=== PATIENT | female | born 1955 | race Caucasian/White ===

== ENCOUNTER 2016-06-20 14:39 | Outpatient (CLI) ==
[2015-10-28 13:20] VITALS: BMI 38.6
[2016-06-20 15:17] VITALS: BP 132/74; TEMP 98.1
[2016-06-20 15:41] LABS: BILIRUBIN,URINE Negative (NEGATIVE); KETONES,URINE Negative (NEGATIVE); LEUKOCYTE ESTERASE ,URINE 1+ (NEGATIVE); NITRITE,URINE Negative (NEGATIVE); PH,URINE 5.5 (5-9); PROTEIN,URINE Negative (NEGATIVE); URINE, BLOOD Negative (NEGATIVE)
[2016-06-20 15:48] LABS: ADD URINE MICROSCOPIC YES
[2016-06-20 15:49] LABS: BACTERIA,URINE 3+ (NOT PRESENT)
== END 2016-06-20 14:40 | disposition home or self-care (01) ==
LOC: OUTPT 14:39
PROVIDERS: ATTEND Internal Medicine Infectious Disease
DX: Z87.440 Personal history of urinary (tract) infections (principal); Z68.36 Body mass index [BMI] 36.0-36.9, adult; R82.90 Unspecified abnormal findings in urine
CPT/HCPCS: 81001; 87086; 87186; 99211

== ENCOUNTER 2016-07-12 11:11 | Outpatient (RCR) ==
[2015-10-28 13:20] VITALS: BMI 38.6
--- NOTE | 2016-07-28 11:12 | RS.CSNOTE ---
PT Case Note Date of Note: 07/12/16 Title of document: ICD 10 codes Note: M62.81 Generalized Weakness. 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 R26.2 Difficulty Walking
== END 2016-07-18 ==
PROVIDERS: ATTEND Emergency Medicine
DX: Z74.09 Other reduced mobility (principal)

== ENCOUNTER 2016-07-21 15:17 | Outpatient (CLI) | payer OTHER ==
[2015-10-28 13:20] VITALS: BMI 38.6
[2016-07-21 16:00] LABS: BILIRUBIN,URINE Negative (NEGATIVE); KETONES,URINE Negative (NEGATIVE); LEUKOCYTE ESTERASE ,URINE 2+ (NEGATIVE); NITRITE,URINE Positive (NEGATIVE); PROTEIN,URINE Negative (NEGATIVE); URINE, BLOOD Trace-intact (NEGATIVE)
[2016-07-21 16:11] LABS: ADD URINE MICROSCOPIC YES
[2016-07-21 16:12] LABS: BACTERIA,URINE 3+ (NOT PRESENT)
== END 2016-07-21 15:18 | disposition home or self-care (01) ==
LOC: LAB 15:17
PROVIDERS: ATTEND Internal Medicine Infectious Disease
DX: N30.90 Cystitis, unspecified without hematuria (principal); B96.89 Other specified bacterial agents as the cause of diseases classified elsewhere; T78.40XA Allergy, unspecified, initial encounter; Z68.36 Body mass index [BMI] 36.0-36.9, adult
CPT/HCPCS: 81001; 87086; 87186

== ENCOUNTER 2016-08-25 15:10 | Outpatient (CLI) ==
[2015-10-28 13:20] VITALS: BMI 38.6
[2016-08-25 16:19] VITALS: BP 104/68; TEMP 97
[2016-08-25 16:19] LABS: BILIRUBIN,URINE Negative (NEGATIVE); KETONES,URINE Negative (NEGATIVE); LEUKOCYTE ESTERASE ,URINE 1+ (NEGATIVE); NITRITE,URINE Positive (NEGATIVE); PH,URINE 5.5 (5-9); PROTEIN,URINE Negative (NEGATIVE); URINE, BLOOD Trace-lysed (NEGATIVE)
[2016-08-25 16:21] LABS: ADD URINE MICROSCOPIC YES
[2016-08-25 16:22] LABS: BACTERIA,URINE 2+ (NOT PRESENT)
== END 2016-08-25 15:11 | disposition home or self-care (01) ==
LOC: OPMED 15:10
PROVIDERS: ATTEND Internal Medicine Infectious Disease
DX: N39.0 Urinary tract infection, site not specified (principal); B96.29 Other Escherichia coli [E. coli] as the cause of diseases classified elsewhere
CPT/HCPCS: 81001; 87086; 87186

== ENCOUNTER 2016-11-06 15:48 | Outpatient (CLI) | payer OTHER ==
[2015-10-28 13:20] VITALS: BMI 38.6
[2016-11-06 16:48] VITALS: BP 112/70; TEMP 98.3
[2016-11-06 17:25] LABS: BILIRUBIN,URINE Negative (NEGATIVE); KETONES,URINE Negative (NEGATIVE); LEUKOCYTE ESTERASE ,URINE 3+ (NEGATIVE); NITRITE,URINE Positive (NEGATIVE); PH,URINE 5.5 (5-9); PROTEIN,URINE Negative (NEGATIVE); URINE, BLOOD 1+ (NEGATIVE)
[2016-11-06 17:27] LABS: ADD URINE MICROSCOPIC YES
[2016-11-06 17:28] LABS: BACTERIA,URINE 3+ (NOT PRESENT)
== END 2016-11-06 15:49 | disposition home or self-care (01) ==
LOC: OPMED 15:48
PROVIDERS: ATTEND Internal Medicine Infectious Disease
DX: N39.0 Urinary tract infection, site not specified (principal); B96.29 Other Escherichia coli [E. coli] as the cause of diseases classified elsewhere; E11.9 Type 2 diabetes mellitus without complications; Z68.35 Body mass index [BMI] 35.0-35.9, adult
CPT/HCPCS: 81001; 87086; 87186; 99211

== ENCOUNTER 2016-11-16 15:57 | Outpatient (CLI) ==
[2015-10-28 13:20] VITALS: BMI 38.6
[2016-11-16 16:55] LABS: BASOPHILS % (AUTO) 0.5 % (0.0-3.0); EOSINOPHILS # (AUTO) 0.2 K/ul (0.0-0.7); EOSINOPHILS % (AUTO) 2.4 % (0.0-7.0); HEMATOCRIT 40.6 % (37.0-47.0); HEMOGLOBIN 13.5 g/dl (12.0-16.0); IMMATURE GRANULOCYTE % (AUTO) 0.4 % (0.0-5.0); LYMPHOCYTES # (AUTO) 1.9 K/uL (0.60-3.4); LYMPHOCYTES % (AUTO) 23.1 (10.0-50.0); MEAN CORPUSCULAR HEMOGLOBIN 29.2 pg (27.0-31.0); MEAN CORPUSCULAR HGB CONC 33.3 (31.8-35.4); MEAN CORPUSCULAR VOLUME 87.7 fl (81.0-99.0); MONOCYTES # (AUTO) 0.6 K/uL (0.4-2.0); MONOCYTES % (AUTO) 6.9 (0-10); NEUTROPHILS # (AUTO) 5.6 K/ul (2.0-6.9); NEUTROPHILS % (AUTO) 66.7; PLATELET COUNT 317 10^3/uL (140-440); RED BLOOD COUNT 4.63 10^6/ul (4.20-5.40); WHITE BLOOD COUNT 8.39 K/ul (4.6-10.2)
[2016-11-16 17:35] LABS: ALBUMIN 4.4 g/dL (3.4-5.0); ALBUMIN/GLOBULIN RATIO 1.47; ANION GAP 17.2; BILIRUBIN,TOTAL 0.53 mg/dL (0.00-1.20); BUN/CREATININE RATIO 15.9; CALCIUM 9.9 mg/dL (8.2-10.2); CHOL/HDL RATIO 3.3 (4.5-5.5); CREATININE 1.32 mg/dL (0.60-1.30); POTASSIUM 4.2 mmol/L (3.5-5.10); TOTAL PROTEIN 7.4 g/dL (5.8-8.1)
== END 2016-11-16 15:58 | disposition home or self-care (01) ==
LOC: LAB 15:57
PROVIDERS: ATTEND Emergency Medicine
CPT/HCPCS: 36415; 80053; 80061; 83036; 84443; 85025

== ENCOUNTER 2016-11-30 10:55 | Outpatient (CLI) ==
[2016-11-30 11:14] VITALS: BMI 35.2
== END 2016-11-30 10:56 | disposition home or self-care (01) ==
LOC: AMBL 10:55
PROVIDERS: ATTEND Emergency Medicine
DX: S00.31XA Abrasion of nose, initial encounter (principal); W01.0XXA Fall on same level from slipping, tripping and stumbling without subsequent striking against object, initial encounter; Z86.73 Personal history of transient ischemic attack (TIA), and cerebral infarction without residual deficits

== ENCOUNTER 2016-11-30 11:05 | Emergency (ER) ==
[2016-11-30 11:14] VITALS: BP 113/63; TEMP 98.8; BMI 35.2
--- NOTE | 2016-11-30 11:28 | ED.PDOC ---
General ED Provider: Dr. STEPHANIE HINTON Chief Complaint: Fall Stated Complaint: Fall; no loss of consciousness. R wrist tookl fall as did face Time Seen by Physician: 11:15 Mode of Arrival: Ambulance Information Source: Patient [facility] Nursing and Triage Documentation Reviewed and Agree: Yes Review of Systems - Review Of Systems Constitutional: Reports: No symptoms Musculoskeletal: Reports: Joint swelling (R wrist) Neurological: Reports: No symptoms All Other Systems: Reviewed and Negative Past Medical History - Past Medical History Previously Healthy: No Endocrine: Reports: DM 2 Cardiovascular: Reports: Hypertension, CHF Respiratory: Reports: Pneumonia Hematological: Reports: None Gastrointestinal: Reports: None Genitourinary: Reports: None Neuro/Psych: Reports: CVA Musculoskeletal: Reports: Other Cancer: Reports: None Last Menstrual Period: unknown Other Pertinent Past Medical History: Drop Foot, Broken Back - Surgical History General Surgical History: Reports: Appendectomy, Cholecystectomy, Tonsillectomy , Unknown (Gallbladder, Tonsilectomy, Appendectomy Drop Foot, Broken Back) - Family History Family History: Reports: Unknown - Social History Smoking Status: Never smoker Hx Substance Use: No Alcohol Screening: None - Immunizations Tetanus Shot up to Date: Yes (5 yrs) Physical Exam - Physical Exam Appearance: Well-appearing Eyes: ELVIS, EOMI, Conjunctiva clear, Right pupil size (4mm), Left pupil size (4 mm) ENT: Ears normal, Nose normal, Oropharynx normal Neck: Supple Respiratory: Airway patent, Breath sounds clear, Respirations nonlabored Cardiovascular: RRR, Pulses normal GI/: Soft, Nontender, No masses, Bowel sounds normal Skin: Warm, Dry, Normal color (Developing ecchymosis L infra patellar) Neurological: Motor intact (Motor R limited with residual CVA contractures and limited motion), Alert, Oriented Interpretation - Radiology Interpretation Radiology Interpretation By: Radiologist Radiology Results: Negative (R wrist) Critical Care Note - Critical Care Note Total Time (mins): 30 Course - Course Orders, Labs, Meds: Orders Category Date Time Status Wound [ED WOUND CARE] .ONCE EMERGENCY 11/30/16 13:[address] HEAD W/O CONTRAST Stat RADS 11/30/16 13:02 Completed WRIST, RIGHT 3 VIEWS Stat RADS 11/30/16 11:26 Completed Vital Signs: Temp Pulse Resp BP Pulse Ox 11/30/16 11:06 98.8 F 79 20 113/63 96 Departure - Departure Time of Disposition: 14:03 Disposition: HOME SELF-CARE Discharge Problem: Abrasion Wrist contusion Qualifiers: Encounter type: initial encounter Laterality: right Qualifier Code: (S60.211A) Contusion of right wrist, initial encounter Instructions: Contusion in Adults (ED) Condition: Good Pt referred to PMD for follow-up: Yes (Call for appointment) Additional Instructions: Resume usual medications; follow up with primary care as needed. Allergies/Adverse Reactions: Allergies atorvastatin calcium [From Lipitor] Adverse Reaction (Verified 10/28/15 13:21) bacitracin [From Neosporin ([id number])] Adverse Reaction (Verified 10/28/15 13:21) bacitracin zinc [From Neosporin ([id number])] Adverse Reaction (Verified 02/03 13:21) cephalexin monohydrate [From Keflex] Adverse Reaction (Verified 10/28/15 13:21) Iodinated Contrast- Oral and IV Dye Adverse Reaction (Verified 10/28/15 13:21) neomycin sulfate [From Neosporin ([id number])] Adverse Reaction (Verified 02/03 13:21) polymyxin B [From Neosporin (dor-pqq-ylqum)] Adverse Reaction (Verified 13:21) Sulfa (Sulfonamide Antibiotics) Adverse Reaction (Verified 10/28/15 13:21) Home Medications: Ambulatory Orders Amlodipine Besylate [Norvasc] 5 mg PO DAILY 12/12/12 Furosemide [Lasix Tab] 20 mg PO QDAC 12/12/12 Ranitidine HCl [Zantac] 150 mg PO BIDAC 12/12/12 Lisinopril 2.5 mg PO DAILY 05/27/13 Fenofibrate Nanocrystallized [Tricor] 48 mg PO BEDTIME 09/04/13 Metformin HCl [Glucophage] 500 mg PO BID 09/04/13 Nitrofurantoin Macrocrystal [Macrodantin] 50 mg PO BEDTIME 09/04/13 Oxybutynin Chloride [Ditropan Xl] 15 mg PO DAILY 09/04/13 Clopidogrel Bisulfate [Plavix] 75 mg PO DAILY 02/16/14 Icosapent Ethyl [Vascepa] 1 gm PO DAILY 08/20/14 Rosuvastatin Calcium [Crestor] 20 mg PO BEDTIME 08/20/14 Sertraline HCl [Zoloft] 25 mg PO BEDTIME 08/20/14 Icosapent Ethyl [Vascepa] 1 g PO DAILY 04/08/15 Spironolactone 25 mg PO BID 04/08/15 Diclofenac Epolamine [Flector] 1 each TD BID 11/16/16 Magnesium Oxide [Magnesium] 250 mg PO DAILY 11/16/16 Metformin HCl 500 mg PO DAILY 11/16/16 Nystatin [Nystop] 60 gm TP DAILY powder 11/16/16 Pantoprazole Sodium [Protonix] 40 mg PO DAILY 11/16/16 Disposition Discussed With: Patient (and family)
--- NOTE | 2016-11-30 11:57 | DI ---
EXAM: Radiographs, right wrist HISTORY: Initial presentation right wrist injury. COMPARISON: None available. TECHNIQUE: Three views. FINDINGS: The bones are demineralized. The wrist joint and MCP joints are flexed which cause super imposition of structures, limiting evaluation for fracture. No acute fracture or dislocation sugges annette. Moderate osteoarthritic changes likely present throughout the wrist. IMPRESSION: No fracture or dislocation within the limitations discussed above. Consider follow-up examination i f there are persistent some.
--- NOTE | 2016-11-30 13:44 | CT ---
EXAM: CT BRAIN HISTORY: Fall, on Plavix TECHNIQUE: CT brain without intravenous contrast. 5-mm axial sections with Reformations. COMPARISON: 10/28/2015 FINDINGS: There is generalized atrophy. At least mild chronic microvascular ischemic change is suggested. La rge degree of encephalomalacia within the left supratentorial brain likely related to old infarction or trauma. These findings are stable. Brain otherwise is unremarkable without distinct evidence o f hemorrhage or large vessel distribution recent ischemic infarction. There is no suggestion of acu te hydrocephalus or subdural fluid collection. No mass or mass effect. Cranium is within normal limits. Mastoid air cells are aerated. The visualized paranasal sinuses are clear. IMPRESSION: No acute intracranial process.
== END 2016-11-30 14:24 | disposition home or self-care (01) ==
LOC: ED 11:05
DX: S60.211A Contusion of right wrist, initial encounter (principal); S09.93XA Unspecified injury of face, initial encounter; T14.8 Other injury of unspecified body region; W19.XXXA Unspecified fall, initial encounter
CPT/HCPCS: 99283

== ENCOUNTER 2017-01-10 12:52 | Outpatient (CLI) | payer OTHER ==
--- NOTE | 2017-01-12 11:01 | MAMMO ---
EXAM: Bilateral digital screening mammogram History: Screening Comparison: Bilateral mammogram 09/21/2015 Findings: MLO and CC views of bilateral breasts demonstrate scattered fibroglandular breast parenchy ma. Stable benign bilateral breast calcifications. There are no dominant masses, no suspicious leif rocalcifications and no architectural distortions Impression: Benign stable mammogram. Recommend followup routine screening mammography in 1 year. BIRADS 2
== END 2017-01-10 12:53 | disposition home or self-care (01) ==
LOC: RAD 12:52
PROVIDERS: ATTEND Internal Medicine
DX: Z12.31 Encounter for screening mammogram for malignant neoplasm of breast (principal)
CPT/HCPCS: 77067

== ENCOUNTER 2017-01-18 15:32 | Outpatient (CLI) ==
[2017-01-18 15:47] LABS: BILIRUBIN,URINE Negative (NEGATIVE); KETONES,URINE Negative (NEGATIVE); LEUKOCYTE ESTERASE ,URINE 1+ (NEGATIVE); NITRITE,URINE Positive (NEGATIVE); PH,URINE 5.5 (5-9); PROTEIN,URINE Negative (NEGATIVE); URINE, BLOOD Trace-intact (NEGATIVE)
[2017-01-18 15:50] LABS: ADD URINE MICROSCOPIC YES
[2017-01-18 15:51] LABS: BACTERIA,URINE 3+ (NOT PRESENT)
== END 2017-01-18 15:33 | disposition home or self-care (01) ==
LOC: LAB 15:32
PROVIDERS: ATTEND Internal Medicine
DX: N39.0 Urinary tract infection, site not specified (principal)
CPT/HCPCS: 81001; 87086

== ENCOUNTER 2017-02-15 13:30 | Outpatient (RCR) ==
--- NOTE | 2017-02-06 11:00 | RS.OPPTEV2 ---
Date of Note: 01/31/17 Visit #: 1 Date of Evaluation: 01/31/17 Payer Source: MEDICARE Treatment Diagnosis: left knee pain History of Condition/Mechanism of Injury:: Patient states she fell a few months ago when she was walking out to the bus. States she fell in the front yard. The left knee has hurt since the fall. Prior Level of Function.....Patient was independent with: Ambulation/Mobility ( transfers) Level of Function: Patient has help from family members for ADL's and selfcare. Functional Limitations: Self Care, ADL's, Standing, Bending, Squatting, Ambulation, Community Access/Integration Current Subjective/complaints:: Patient reports left knee pain. States she has needed more assistance due to knee pain from the fall. She was given a knee brace from the doctor's office. States she and her son were not shown how to derrick the brace. Reports tenderness around the medial side of the knee joint. Treatment Side (optional): Left Medical History Medical History: Hypertension, CVA/TIA, Diabetes, Arthritis Medical History Comments:: Includes: pneumonia, DMII, NV, HTN, COPD, GERD, CVA (2003), appendectomy, cholecstectomy Smoking Status: Never smoker Hx Home Medications: medications not brought in Patient's Goals: Her goal is to get relief of left knee pain. Pain Assessment - Pain Description Pain Location: left knee Current Pain Intensity: 3/10 Worst Pain Intensity: 6/10 Functional Outcome Measure LE Functional Scale: 11 (=86.25% impairment) - G Codes & Severity Modifier G Codes & Modifier: Mobility current CM. Mobility goal CL Source of G Code score: LE functional scale Observation - Observation Inspection: Patient presents to therapy via her manual wheelchair. She has a quad cane that she uses for transfers. She has an AFO on the right LE from history of CVA. Performs sit to stand tranfers with supvn. Amb. short distances with her quad cane with supvn. Gait - Gait Pattern Gait Comments: Patient ambulates with quad cane in left hand. She has right sided maggi-paresis from CVA many years ago. She ambulates with supervision short distances in the department. - Left Knee ROM Left Knee Extension: -3 degrees from full extension Left Knee Flexion: 92 (degrees AROM) Comments: measurements taken in sitting - Left Knee Strength Left Knee Extension: 4 Good Left Knee Flexion: 4+ Good + - Special Tests Patellar Compression Test: Negative Left Palpation Comments:: Patient reports tenderness with palpation to the medial joint line and over the medial tibial condyle. Slight tenderness reported with palpation to the patellar tendon, no tenderness over the quad tendon. Sensation - Sensation Right Lower Extremity: Intact/Normal Left Lower Extremity: Intact/Normal Balance - Standing Balance Static Standing Balance: Fair Dynamic Standing Balance: Fair (+) - Treatment Modality: Ultrasound Parameters/Method Applied: 1.5 w/cm2 continuous X 8 mins to left knee, medial joint line and patella tendon. Patient Position: Supine Interventions - Exercise/Activities/Manual Therapy Exercises/Activities: No exercises for HEP given today. Instructed patient how to derrick brace. Recommend her son come to watch how to derrick brace properly. Manual Therapy: na HOME EXERCISE PROGRAM: none given at eval - Charges Total Direct Minutes: 45 mins Total Treatment Time: 45 mins Procedures billed for this date of service:: [facility] , Assessment Assessment: Patient presents to therapy with a diagnosis of left knee pain, joint stiffness, osteoarthritis, and s/p fall a few months ago. She reports medial joint line pain and decreased AROM with left knee flexion and extension. Left knee also demonstrates potential to gain more strength and joint stability. She and her son will benefit from instruction for proper knee brace donning. Patient Education: Education of diagnosis, Body/Joint mechanics, Activity Modification, Education of Plan of Care Rehab Potential: Good Short Term Goals Goal #1: Left knee pain decreased to minimal. Goal to be met by: 02/19/17 Goal #2: Left knee active flexion to 105 degrees. Goal to be met by: 02/19/17 Goal #3: Left quad strength improved to 4+/5. Goal to be met by: 02/19/17 Goal #4: Pt and son demonstrate independence with donning left knee brace. Goal to be met by: 02/12/17 County Director Goals Goal #1: Pt knows HEP and to continue ex's to maintain functional level at D/C. Goal to be met by: 03/12/17 Goal #2: Score on LE functional scale improved to less than 79% impairment. Goal to be met by: 03/12/17 Goal #3: Pt to amb. and perform ADL's with minimal to no knee pain. Goal to be met by: 03/12/17 Progress towards goal: Progressing Plan - Treatment to be Provided Procedures: Therapeutic Exercises, Therapeutic Activity, Gait Training, Manual Therapy, Patient Education Modalities: Electrical Stimulation, Ultrasound/Phonophoresis, Cryotherapy, Hot Packs - Treatment Plan Frequency: 2 X week Duration: 4 weeks ORDER # VISITS AND/OR THROUGH DATE: 03/12/17 - Treatment Code (1) Knee pain Code(s): M25.569 - PAIN IN UNSPECIFIED KNEE Qualifiers: Chronicity: acute Laterality: left Qualified Code(s): M25.562 - Pain in left knee (2) Knee stiffness Qualifiers: Laterality: left Qualified Code(s): M25.662 - Stiffness of left knee, not elsewhere classified
--- NOTE | 2017-02-06 15:06 | RS.OPPTDN ---
Subjective Date of Note: 02/06/17 Visit #: 2 Date of Evaluation: 01/31/17 Payer Source: MEDICARE Treatment Diagnosis: left knee pain Current Subjective/complaints:: Patient reports left knee pain is better following exericse. States she will try to wear the knee brace a few hours a day. States she understands HEP and will work on it as instructed. Pain Assessment - Pain Description Pain Location: left knee Pain Description: more stiffness Current Pain Intensity: 3/10 - Treatment Modality: Ultrasound Parameters/Method Applied: [id number] at 1.5w/cm2 to the left knee joint with focus at the medial joint line. Patient Position: Supine Interventions - Exercise/Activities/Manual Therapy Exercises/Activities: [id number] Mat exercise Quad sets, ham sets, SLR, and SLR/ VMO. Isometric hip add with ball. Sitting, ankle pumps, LAQ, hip flexion. [id number] ADL's with instruction for donning brace. Then practicing sit to and from stand and ambulation with quad cane. Total minutes of Exercise: 20mins EX, 10mins ADL Manual Therapy: na HOME EXERCISE PROGRAM: Isometric hip add, SLR, SLR/VMO, ankle pumps - Charges Total Direct Minutes: 30mins Total Treatment Time: 42mins Procedures billed for this date of service:: US, EX, ADL Assessment: Patient appears motivated to work on HEP and increase ambulation at home. Patient Education: Body/Joint mechanics, Home Exercise Program, Home Safety Patient demonstrates compliance with HEP?: Yes Short Term Goals Goal #1: Left knee pain decreased to minimal. Goal to be met by: 02/19/17 Goal #2: Left knee active flexion to 105 degrees. Goal to be met by: 02/19/17 Progress towards Goal:: Progressing Goal #3: Left quad strength improved to 4+/5. Goal to be met by: 02/19/17 Goal #4: Pt and son demonstrate independence with donning left knee brace. Goal to be met by: 02/12/17 Senior Care Goals Goal #1: Pt knows HEP and to continue ex's to maintain functional level at D/C. Goal to be met by: 03/12/17 Goal #2: Score on LE functional scale improved to less than 79% impairment. Goal to be met by: 03/12/17 Goal #3: Pt to amb. and perform ADL's with minimal to no knee pain. Goal to be met by: 03/12/17 Progress towards goal: Progressing Plan PLAN OF CARE EXPIRES ON:: 03/12/17 ORDER # VISITS AND/OR THROUGH DATE: 03/12/17 PLAN: Progress Exercises (Continue modalities and progress exercise to reduce pain and increase functional activity level.)
--- NOTE | 2017-02-08 15:11 | RS.OPPTDN ---
Subjective Date of Note: 02/08/17 Visit #: 3 Date of Evaluation: 01/31/17 Payer Source: MEDICARE Treatment Diagnosis: left knee pain Current Subjective/complaints:: Patient says she thinks treatment seemed to help her knee last session. She says that the brace improves her pain and stability while walking. She describes soreness at the L medial knee. Pain Assessment - Pain Description Pain Location: left knee Pain Description: "sore" Current Pain Intensity: 3/10 - Treatment Modality: Ultrasound Parameters/Method Applied: continuous @ 1.5 w/cm2 x 12 mins to the L knee medial aspect Patient Position: Supine Interventions - Exercise/Activities/Manual Therapy Exercises/Activities: [id number] Mat exercise of PROM to the L knee. She performs : Quad sets, ham sets, SLR, and SLR/VMO, ball squeeze for isometric hip add, isometric hip flexion and abd, SAQ, ham curls and DF with red tband all 2x10 reps. Sitting, ankle pumps, LAQ, hip flexion. Applied knee brace after therex and practiced sit to stand with QC x 3. Transferred to w/c with CGA/ Supervision. Manual Therapy: na HOME EXERCISE PROGRAM: Isometric hip add, SLR, SLR/VMO, ankle pumps - Charges Total Direct Minutes: 36 Total Treatment Time: 36 Procedures billed for this date of service:: u/s, ex2 Assessment: Patient seeing some decrease in L medial knee pain after sessions. She is able to marcio ROM activities and strengthening with only mild fatigue. Transfers using good safety to/from w/c and bed. Patient Education: Education of diagnosis, Home Exercise Program Patient demonstrates compliance with HEP?: Yes Short Term Goals Goal #1: Left knee pain decreased to minimal. Goal to be met by: 02/19/17 Progress towards Goal:: Progressing Goal #2: Left knee active flexion to 105 degrees. Goal to be met by: 02/19/17 Progress towards Goal:: Progressing Goal #3: Left quad strength improved to 4+/5. Goal to be met by: 02/19/17 Goal #4: Pt and son demonstrate independence with donning left knee brace. Goal to be met by: 02/12/17 Department Helper Goals Goal #1: Pt knows HEP and to continue ex's to maintain functional level at D/C. Goal to be met by: 03/12/17 Goal #2: Score on LE functional scale improved to less than 79% impairment. Goal to be met by: 03/12/17 Goal #3: Pt to amb. and perform ADL's with minimal to no knee pain. Goal to be met by: 03/12/17 Progress towards goal: Progressing Plan PLAN OF CARE EXPIRES ON:: 03/12/17 ORDER # VISITS AND/OR THROUGH DATE: 03/12/17 PLAN: Continue Plan of Care
--- NOTE | 2017-02-15 15:35 | RS.OPPTDN ---
Subjective Date of Note: 02/13/17 Visit #: 5 Date of Evaluation: 01/31/17 Payer Source: MEDICARE Treatment Diagnosis: left knee pain Current Subjective/complaints:: Patient says her knee pain is better and she is feeling stronger. Pain Assessment - Pain Description Pain Location: left knee Pain Description: "sore" Current Pain Intensity: "better" - Treatment Modality: Ultrasound Parameters/Method Applied: continuous @ 1.5 w/cm2 x 12 mins to the L medial aspect of the knee Patient Position: Supine Interventions - Exercise/Activities/Manual Therapy Exercises/Activities: [id number] Assisted patient to Bathroom then began treatment. Mat exercise of PROM to the L knee. She performs: Quad sets, ham sets, SLR, and SLR/VMO, ball squeeze for isometric hip add, isometric hip flexion and abd, SAQ 1#, ham curls and DF with red tband all 2x10 reps. Sitting , ankle pumps, LAQ, hip flexion. Applied knee brace after therex and practiced sit to stand with QC x 3. Transferred to w/c with CGA/Supervision. Manual Therapy: na HOME EXERCISE PROGRAM: Isometric hip add, SLR, SLR/VMO, ankle pumps - Charges Total Direct Minutes: 36 Total Treatment Time: 36 Procedures billed for this date of service:: u/s, ex2 Assessment: Patient admitting improved L knee pain and strength. Patient's son observes better amb at home. Patient Education: Home Exercise Program Patient demonstrates compliance with HEP?: Yes Short Term Goals Goal #1: Left knee pain decreased to minimal. Goal to be met by: 02/19/17 Progress towards Goal:: Progressing Goal #2: Left knee active flexion to 105 degrees. Goal to be met by: 02/19/17 Progress towards Goal:: Progressing Goal #3: Left quad strength improved to 4+/5. Goal to be met by: 02/19/17 Goal #4: Pt and son demonstrate independence with donning left knee brace. Goal to be met by: 02/12/17 Fpc Goals Goal #1: Pt knows HEP and to continue ex's to maintain functional level at D/C. Goal to be met by: 03/12/17 Goal #2: Score on LE functional scale improved to less than 79% impairment. Goal to be met by: 03/12/17 Goal #3: Pt to amb. and perform ADL's with minimal to no knee pain. Goal to be met by: 03/12/17 Progress towards goal: Progressing Plan PLAN OF CARE EXPIRES ON:: 03/12/17 ORDER # VISITS AND/OR THROUGH DATE: 03/12/17 PLAN: Progress Exercises
--- NOTE | 2017-02-19 14:28 | RS.OPPTDN ---
Subjective Date of Note: 02/15/17 Visit #: 5 Date of Evaluation: 01/31/17 Payer Source: MEDICARE Treatment Diagnosis: left knee pain Current Subjective/complaints:: Patient describes improved L knee pain and tenderness. She says she is able to WB better with amb as well. Pain Assessment - Pain Description Pain Location: left knee Pain Description: "sore" Current Pain Intensity: "better" - Treatment Modality: Ultrasound Parameters/Method Applied: continuous @ 1.5 w/cm2 x 12 mins to the Medial aspect of the L knee Patient Position: Supine Interventions - Exercise/Activities/Manual Therapy Exercises/Activities: [id number] [place] was assisted to Bathroom per request then began treatment. She received passive HS and heel cord stretching first then continued Mat exercise of PROM to the L knee. She performs: Quad sets, ham sets, SLR, and SLR/VMO, ball squeeze for isometric hip add, isometric hip flexion and abd, SAQ 1 1/2#, ham curls and DF with red tband all 2x10 reps. Sitting, ankle pumps, LAQ 1 1/2 and hip flexion. Applied knee brace after therex and practiced sit to stand with QC x 3. Transferred to w/c with CGA/ Supervision taking ~6 steps in bathroom and at bedside using QC. Manual Therapy: na HOME EXERCISE PROGRAM: Isometric hip add, SLR, SLR/VMO, ankle pumps - Charges Total Direct Minutes: 38 Total Treatment Time: 38 Procedures billed for this date of service:: u/s, ex2 Assessment: Patient experiencing less pain to the L knee allowing her to place more weight onto that LE with ambulation. She shows improved marcio to strengthening exercises as well. She should benefit from further therex to improve strength and assist with gait/bal. Patient Education: Education of diagnosis, Body/Joint mechanics, Home Exercise Program, Home Safety, Activity Modification, Education of Plan of Care Patient demonstrates compliance with HEP?: Yes Short Term Goals Goal #1: Left knee pain decreased to minimal. Goal to be met by: 02/19/17 Progress towards Goal:: Progressing Goal #2: Left knee active flexion to 105 degrees. Goal to be met by: 02/19/17 Progress towards Goal:: Progressing Goal #3: Left quad strength improved to 4+/5. Goal to be met by: 02/19/17 Goal #4: Pt and son demonstrate independence with donning left knee brace. Goal to be met by: 02/12/17 Intermediate Goals Goal #1: Pt knows HEP and to continue ex's to maintain functional level at D/C. Goal to be met by: 03/12/17 Progress towards goal: Progressing Goal #2: Score on LE functional scale improved to less than 79% impairment. Goal to be met by: 03/12/17 Goal #3: Pt to amb. and perform ADL's with minimal to no knee pain. Goal to be met by: 03/12/17 Progress towards goal: Progressing Progress towards goal: Progressing Plan PLAN OF CARE EXPIRES ON:: 03/12/17 ORDER # VISITS AND/OR THROUGH DATE: 03/12/17 PLAN: Progress Exercises
== END 2017-02-17 ==
PROVIDERS: ATTEND Orthopaedic Surgery
DX: M17.12 Unilateral primary osteoarthritis, left knee (principal)

== ENCOUNTER 2017-02-26 15:35 | Outpatient (CLI) ==
[2017-02-26 15:54] LABS: BILIRUBIN,URINE Negative (NEGATIVE); KETONES,URINE Negative (NEGATIVE); LEUKOCYTE ESTERASE ,URINE 2+ (NEGATIVE); NITRITE,URINE Positive (NEGATIVE); PROTEIN,URINE Negative (NEGATIVE); URINE, BLOOD Trace-intact (NEGATIVE)
[2017-02-26 16:01] LABS: ADD URINE MICROSCOPIC YES
[2017-02-26 16:02] LABS: BACTERIA,URINE 2+ (NOT PRESENT)
== END 2017-02-26 15:36 | disposition home or self-care (01) ==
LOC: LAB 15:35
PROVIDERS: ATTEND Internal Medicine
DX: N39.0 Urinary tract infection, site not specified (principal)
CPT/HCPCS: 81001; 87086

== ENCOUNTER 2017-06-13 17:30 | Emergency (ER) ==
[2017-06-13 17:30] VITALS: BMI 35.2
[2017-06-13 17:41] VITALS: BP 109/74; TEMP 97.6
--- NOTE | 2017-06-13 18:27 | ED.PDOC ---
General ED Provider: Dr. SUMMER CALDERON Chief Complaint: Hand Pain/Injury Stated Complaint: right hand pain Time Seen by Physician: 17:30 Mode of Arrival: Wheelchair Information Source: Patient Exam Limitations: No limitations Primary Care Provider: JAIME SHETH Nursing and Triage Documentation Reviewed and Agree: Yes Reviewed sepsis parameters & appropriate labs ordered?: Yes System Inflammatory Response Syndrome: Not Applicable Sepsis Protocol: For patient's 13 years and over: Temp is 96.8 and below OR 101 and greater Pulse >90 BPM Resp >20/minute Acutely Altered Mental Status Are patient's symptoms suggestive of a new infection, such as: -Pneumonia -Skin, Soft Tissue -Endocarditis -UTI -Bone, Joint Infection -Implantable Device -Acute Abdominal Infection -Wound Infection -Meningitis -Blood Stream Catheter Infection -Unknown System Inflammatory Response Syndrome: Not Applicable Musculoskeletal Complaint Exam - Hand/Wrist Complaint/Exam Location of Pain: Reports: Right, Hand, Wrist Mechanism of Injury: Reports: Trauma Onset/Duration: today prior to arrival hand is contracted at all times Symptoms Are: Still present Onset of Pain: Reports: Minutes Initial Severity: Mild Current Severity: Mild Location: Reports: Discrete Character: Reports: Aching Alleviating: Reports: Rest Aggravating: Reports: Movement Associated Signs and Symptoms: Denies: Swelling, Redness, Bruising, Fever, Weakness, Numbness, Tingling Hand/Wrist Findings: Present: Abnormal contour (chronic). Absent: Ecchymosis Compartment Syndrome Risk Factors: Present: Pain Differential Diagnoses: Closed Fracture, Sprain, Strain Review of Systems - Review Of Systems Constitutional: Reports: No symptoms Eyes: Reports: No symptoms Ears, Nose, Mouth, Throat: Reports: No symptoms Respiratory: Reports: No symptoms Cardiac: Reports: No symptoms GI: Reports: No symptoms : Reports: No symptoms Musculoskeletal: Reports: Other (hand and wrist pain) Skin: Reports: No symptoms Neurological: Reports: No symptoms Endocrine: Reports: No symptoms Hematologic/Lymphatic: Reports: No symptoms All Other Systems: Reviewed and Negative Past Medical History - Past Medical History Previously Healthy: No Endocrine: Reports: DM 2 Cardiovascular: Reports: Hypertension, CHF Respiratory: Reports: Pneumonia Hematological: Reports: None Gastrointestinal: Reports: None Genitourinary: Reports: None Neuro/Psych: Reports: CVA Musculoskeletal: Reports: Other Cancer: Reports: None Last Menstrual Period: n/a Other Pertinent Past Medical History: Drop Foot, Broken Back - Surgical History General Surgical History: Reports: Appendectomy, Cholecystectomy, Tonsillectomy , Unknown (Gallbladder, Tonsilectomy, Appendectomy Drop Foot, Broken Back) - Family History Family History: Reports: Unknown - Social History Smoking Status: Never smoker Hx Substance Use: No Alcohol Screening: None Physical Exam - Physical Exam Appearance: Well-appearing, No pain distress, Well-nourished Eyes: ELVIS, EOMI, Conjunctiva clear ENT: Ears normal, Nose normal, Oropharynx normal Respiratory: Airway patent, Breath sounds clear, Breath sounds equal, Respirations nonlabored Cardiovascular: RRR, Pulses normal, No rub, No murmur GI/: Soft, Nontender, No masses, Bowel sounds normal, No Organomegaly Musculoskeletal: Limited ROM Skin: Warm, Dry, Normal color Neurological: Sensation intact, Motor intact, Reflexes intact, Cranial nerves intact, Alert, Oriented Psychiatric: Affect appropriate, Mood appropriate Interpretation - Radiology Interpretation Radiology Interpretation By: Radiologist Critical Care Note - Critical Care Note Total Time (mins): 0 Course - Course Orders, Labs, Meds: Orders Category Date Time Status HAND, RIGHT 3 VIEWS Stat RADS 06/13/17 17:41 Ordered WRIST, RIGHT 3 VIEWS Stat RADS 06/13/17 17:41 Ordered Vital Signs: Temp Pulse Resp BP Pulse Ox 06/13/17 17:30 97.6 F 72 16 109/74 96 Departure - Departure Time of Disposition: 18:21 Disposition: HOME SELF-CARE Discharge Problem: Injury of hand, Hand pain Instructions: Hand Sprain (ED) Condition: Good Pt referred to PMD for follow-up: Yes IPMP verified?: Yes Allergies/Adverse Reactions: Allergies atorvastatin calcium [From Lipitor] Adverse Reaction (Verified 03/23/17 11:16) bacitracin [From Neosporin ([id number])] Adverse Reaction (Verified 03/23/17 11:16) bacitracin zinc [From Neosporin ([id number])] Adverse Reaction (Verified 08/04 11:16) cephalexin [From Keflex] Adverse Reaction (Verified 06/13/17 17:34) cephalexin monohydrate [From Keflex] Adverse Reaction (Verified 03/23/17 11:16) clarithromycin [From Biaxin] Adverse Reaction (Verified 03/23/17 11:28) Iodinated Contrast- Oral and IV Dye Adverse Reaction (Verified 03/23/17 11:16) neomycin sulfate [From Neosporin ([id number])] Adverse Reaction (Verified 08/04 11:16) polymyxin B [From Neosporin ([id number])] Adverse Reaction (Verified 11:16) Sulfa (Sulfonamide Antibiotics) Adverse Reaction (Verified 03/23/17 11:16) Home Medications: Ambulatory Orders Furosemide [Lasix Tab] 20 mg PO QDAC 12/12/12 Ranitidine HCl [Zantac] 150 mg PO BIDAC 12/12/12 Oxybutynin Chloride [Ditropan Xl] 15 mg PO DAILY 09/04/13 Clopidogrel Bisulfate [Plavix] 75 mg PO DAILY 02/16/14 Sertraline HCl [Zoloft] 25 mg PO BEDTIME 08/20/14 Spironolactone 25 mg PO BID 04/08/15 Diclofenac Epolamine [Flector] 1 each TD BID 11/16/16 Magnesium Oxide [Magnesium] 250 mg PO DAILY 11/16/16 Metformin HCl 500 mg PO DAILY 11/16/16 Omeprazole [Prilosec] 20 mg PO QDAC 03/23/17 Hydrocodone/Acetaminophen [[place] 5-325 Tablet] 1 each PO Q6HR PRN #7 tablet
--- NOTE | 2017-06-14 07:15 | DI ---
EXAM: Three views of the right hand HISTORY: Pain of the right wrist. COMPARISON: Right wrist x-ray FINDINGS: This evaluation is severely limited due to right hand positioning. There is no displaced f racture identified. There is narrowing and degenerative change of the radiocarpal joint. There is n o lytic or blastic lesion. IMPRESSION: 1. Limited evaluation due to positioning demonstrates no displaced fracture. 2. 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
--- NOTE | 2017-06-14 07:16 | DI ---
EXAM: Three views of the right wrist HISTORY: Fall with right wrist pain. COMPARISON: Right hand x-ray same day and right wrist x-ray 11/30/2016 FINDINGS: Evaluation is limited due to positioning. There is narrowing and osteophyte formation of t he radiocarpal joint. Osteophyte formation is present. There is no lytic or blastic lesion. The so ft tissues are unchanged from prior exam. IMPRESSION: 1. No displaced fracture or dislocation of the right wrist. 2. Degenerative change with narrowing and osteophyte formation of the radiocarpal joint.
== END 2017-06-13 18:32 | disposition home or self-care (01) ==
LOC: ED 17:30
DX: S69.91XA Unspecified injury of right wrist, hand and finger(s), initial encounter (principal); W22.8XXA Striking against or struck by other objects, initial encounter
CPT/HCPCS: 99283

== ENCOUNTER 2017-06-19 09:14 | Outpatient (CLI) ==
[2017-06-19 10:30] VITALS: BP 100/59; TEMP 97.4
== END 2017-06-19 09:15 | disposition home or self-care (01) ==
LOC: OPMED 09:14
PROVIDERS: ATTEND Internal Medicine Infectious Disease
DX: N39.0 Urinary tract infection, site not specified (principal); Z87.440 Personal history of urinary (tract) infections; Z68.35 Body mass index [BMI] 35.0-35.9, adult

== ENCOUNTER 2017-06-20 15:55 | Outpatient (CLI) | payer OTHER | END 2017-06-20 15:56 | disposition home or self-care (01) | LOC: OUTPT 15:55 | PROVIDERS: ATTEND Internal Medicine Infectious Disease | DX: N39.0 Urinary tract infection, site not specified (principal); Z87.440 Personal history of urinary (tract) infections; Z68.35 Body mass index [BMI] 35.0-35.9, adult | CPT/HCPCS: 81001; 87086; 99211 ==

== ENCOUNTER 2017-06-26 12:02 | Inpatient (IN) ==
[2017-06-26] MEDS ORDERED: HUMULIN R SUBCUT PRN (13:26)
--- NOTE | 2017-06-26 15:34 | DI ---
Exam: Two x-rays of the chest. Comparison: 04/08/2015. Reason for exam: Short of breath. FINDINGS: No pneumothorax, pleural effusion, or focal consolidation. The cardiac silhouette is not enlarged. The imaged osseous structures appear grossly unremarkable without acute fracture. Degener ative disease is seen in the thoracic and lumbar spine. Evaluation is somewhat limited secondary to summation artifact. There are patchy airspace opacities in the lung bases not significantly changed from previous exam. Impression: No acute cardiopulmonary process.
[2017-06-26] MEDS: DEXTROSE 5%-1/2NS IV SOLUTION 1,000 ML IV SCH (15:40)
--- NOTE | 2017-06-26 15:40 | CT ---
EXAM: CT of the soft tissue neck without contrast History: Swollen lymph nodes. Comparison: CT neck 08/05/2014 Technique: Multiplanar CT images through the soft tissue neck were obtained without the administrati on of IV contrast Findings: Encephalomalacia again seen within the left temporal lobe of the brain. Orbits are intact . The visualized paranasal sinuses and mastoid air cells are clear in general. The visualized upper lungs are free of consolidation. No acute osseous abnormalities. Moderate degenerative disc diseas e within the lower cervical spine. No prevertebral soft tissue swelling. Epiglottis is not thickene d. Calcified granulomas seen within the mediastinum. No discrete thyroid nodules identified by CT. No parotid inflammation and no parotid masses. Submandibular glands are not inflamed. No peritonsi llar inflammation. No abscesses. No pathologically enlarged lymph nodes. Impression: No acute or significant findings.
[2017-06-26] MEDS: LEVAQUIN 500 MG in PREMIX 100 ML D5W 1 BAG IV SCH (15:41)
[2017-06-26] MEDS: DECADRON 4 MG/ML SDV IVP SCH (15:41)
[2017-06-26] MEDS: ZANTAC PO SCH (17:08)
[2017-06-26] MEDS ORDERED: FENOFIBRATE NANOCRYSTALLIZED 48 MG PO SCH (21:00)
[2017-06-26] MEDS ORDERED: NON-FORMULARY MEDICATION (Rosuvastatin Calcium [Crestor] 20 MG) PO SCH (21:00)
[2017-06-26] MEDS ORDERED: SERTRALINE HCL 25 MG PO SCH (21:00)
[2017-06-26] MEDS ORDERED: MACROBID PO SCH (21:00)
[2017-06-26] MEDS: ALDACTONE PO SCH (21:04)
[2017-06-26] MEDS: ZOLOFT PO SCH (21:04)
[2017-06-26] MEDS: CRESTOR PO SCH (21:04)
[2017-06-26] MEDS: TRIGLIDE PO SCH (21:04)
[2017-06-26] MEDS: DICLOFENAC EPOLAMINE TD SCH (21:05)
[2017-06-26] MEDS: MAGNESIUM OXIDE 250 MG PO SCH (21:06)
[2017-06-27] MEDS: DEXTROSE 5%-1/2NS IV SOLUTION 1,000 ML IV SCH ×2 (03:40→18:06)
[2017-06-27] MEDS: ZANTAC PO SCH ×2 (05:57→16:49)
[2017-06-27] MEDS: PRILOSEC PO SCH (05:57)
[2017-06-27] MEDS: LASIX TAB PO SCH (05:57)
[2017-06-27] MEDS ORDERED: LASIX TAB PO SCH (06:30)
[2017-06-27] MEDS: DECADRON 4 MG/ML SDV IVP SCH (08:26)
[2017-06-27] MEDS ORDERED: NON-FORMULARY MEDICATION (Oxybutynin Chloride [Ditropan Xl] 15 MG) PO SCH (09:00)
[2017-06-27] MEDS ORDERED: NON-FORMULARY MEDICATION (Lisinopril [Lisinopril] 2.5 MG) PO SCH (09:00)
[2017-06-27] MEDS ORDERED: MACRODANTIN PO SCH (09:00)
--- NOTE | 2017-06-27 09:14 | PCM.PROG ---
Attending Provider: ATTENDING PROVIDER: Dr. JAIME SHETH DATE OF SERVICE: 06/27/17 SUBJECTIVE: This 61 year old WHITE/ F was hospitalized 06/26/17 with acute lymphadenitis, right cervical and right supraclavicular. Condition improved. Nausea is better. The patient is looking better, hydration status is better. REVIEW OF SYSTEMS: CONSTITUTIONAL: No night sweats. No fatigue, malaise, lethargy. No fever or chills. HEENT: Eyes: No visual changes. No eye pain. No eye discharge. ENT: No runny nose. No epistaxis. No sinus pain. No odynophagia. No congestion. RESPIRATORY: No cough, no congestion. No hemoptysis. No shortness of breath. CARDIOVASCULAR: No angina symptoms. No CHF symptoms. No atypical chest pain for CAD. No palpitations. No orthopnea.. GASTROINTESTINAL: No abdominal pain. No nausea or vomiting. No diarrhea or constipation. No hematemesis. No hematochezia. GENITOURINARY: No urgency. No frequency. No dysuria. No hematuria. No obstructive symptoms. No discharge. No pain. No significant abnormal bleeding. MUSCULOSKELETAL: No musculoskeletal pain; no joint swelling. NEUROLOGICAL: Awake, alert, oriented to time, place and person. No headache. No neck pain. No syncope. No seizures. No dizziness. PSYCHIATRIC: Not anxious. No depression. No suicidal thoughts. No homicidal thoughts. SKIN: No rash. No lesions. No wounds. ENDOCRINE: No unexplained weight loss. No weight gain. HEMATOLOGIC/LYMPHATIC: No anemia. No purpura. No petechiae. No prolonged or excessive bleeding. No palpable lymph nodes. PHYSICAL EXAMINATION: GENERAL: The patient is awake, alert and oriented, lying in bed in no distress. VITAL SIGNS: Temperature 98.1 F, Pulse 68, Respiratory Rate 16, BP 88/54, Pulse Ox 97% HEENT: Head normocephalic, atraumatic. Eyes: Extraocular muscles are intact. Pupils are equal, round and reactive to light and accommodation. Ears: No lesions. Nose appeared normal. Throat: No exudate or erythema. NECK: Supple. No JVD, no carotid bruit. Mild cervical lymphadenopathy with swelling. No thyromegaly. LUNGS: Clear to auscultation. Percussion note normal. Chest symmetrical. HEART: S1, S2, no S3. No murmurs. No cyanosis or clubbing. No ascites. Pulses: Dorsalis pedis and posterior tibial pulses +1 to +2 both sides. ABDOMEN: Soft. Non-tender. Bowel sounds active. No CVA tenderness. No mass felt. EXTREMITIES: No edema. Full range of motion of all extremities, equal. NEUROLOGIC: No focal deficit. Cranial nerves II through XII are grossly intact. No headache, no double vision or headache. SKIN: Warm and dry. Intact. Turgor-normal. LYMPHATIC: No palpable lymph nodes/no lymphedema. MUSCULOSKELETAL: Normal joints with no swelling. Muscle tone is normal. LAB REVIEW: 06/27/17 04:00 06/27/17 04:00 06/27/17 04:00: Sodium 133 L, Potassium 4.3, Chloride 100, Carbon Dioxide 23, Anion Gap 14.3, BUN 21 H, Creatinine 1.16, Estimated GFR (MDRD) 47.00, BUN/ Creatinine Ratio 18.10, Glucose 138 H, Calcium 9.7, Total Bilirubin 0.5, AST 13 L, ALT 16, Alkaline Phosphatase 40 L, Total Protein 6.5, Albumin 3.6, Globulin 2.9, Albumin/Globulin Ratio 1.24 06/27/17 04:00: WBC 9.38, RBC 4.08 L, Hgb 11.9 L, Hct 35.8 L, MCV 87.7, MCH 29.2 , MCHC 33.2, RDW Coeff of Naty 12.7, Plt Count 298, Immature Gran % (Auto) 0.2, Neut % (Auto) 85.5, Lymph % (Auto) 9.5 L, [place] % (Auto) 4.6, Eos % (Auto) 0.0, Baso % (Auto) 0.2, Immature Gran # (Auto) 0.0, Neut # 8.0 H, Lymph # 0.9, [place] # 0.4, Eos # 0.0, Baso # 0.0 06/26/17 13:54: Influenza A (Rapid) Negative by naat, Influenza B (Rapid) Negative by naat 06/26/17 13:54: Urine Color Yellow, Urine Clarity Clear, Urine pH 5.5, Ur Specific [place] 1.015, Urine Protein Negative, Urine Glucose (UA) Negative, Urine Ketones Negative, Urine Blood Negative, Urine Nitrite Negative, Urine Bilirubin Negative, Urine Urobilinogen 0.2, Ur Leukocyte Esterase Negative 06/26/17 13:54: Thyroxine (T4) 8.6 06/26/17 13:54: Sodium 138, Potassium 4.0, Chloride 101, Carbon Dioxide 27, Anion Gap 14.0, BUN 19 H, Creatinine 1.23, Estimated GFR (MDRD) 44.00, BUN/ Creatinine Ratio 15.44, Glucose 104, Calcium 9.8, Total Bilirubin 0.5, AST 19, ALT 20, Alkaline Phosphatase 43 L, Total Protein 7.1, Albumin 4.0, Globulin 3.1 , Albumin/Globulin Ratio 1.29, TSH 1.412 06/26/17 13:54: WBC 7.90, RBC 4.25, Hgb 12.7, Hct 37.8, MCV 88.9, MCH 29.9, MCHC 33.6, RDW Coeff of Naty 13.0, Plt Count 287, Immature Gran % (Auto) 0.3, Neut % (Auto) 69.4, Lymph % (Auto) 21.1, [place] % (Auto) 7.1, Eos % (Auto) 1.6, Baso % (Auto) 0.5, Immature Gran # (Auto) 0.0, Neut # 5.5, Lymph # 1.7, [place] # 0.6, Eos # 0.1, Baso # 0.0 ASSESSMENT: Mild cervical lymphadenopathy noted with swelling. No supraclavicular swelling seen today. CT scan of neck negative. Chest x-ray negative. Acute lymphadenitis supraclavicular and right cervical seems to be improving. PLAN: 1. Continue antibiotics and steroids. 2. Rapid swab for strep throat. 3. Rapid Flu A & B negative. 4. 1 cc Decadron this morning. Plan and coordination of the patient's care discussed in the presence of [place] Machine Operator Helper and nurse. CONDITION: Stable SCRIBED BY: AIMEE HODGE Cell Operation Supervisor scribed while in presence of service performed by Dr. JAIME SHETH on 06/27/17 ([id number])
[2017-06-27] MEDS: ALDACTONE PO SCH ×2 (09:48→20:28)
[2017-06-27] MEDS: DICLOFENAC EPOLAMINE TD SCH ×2 (09:49→20:27)
[2017-06-27] MEDS: DITROPAN XL PO SCH (09:49)
[2017-06-27] MEDS: GLUCOPHAGE PO SCH (09:49)
[2017-06-27] MEDS: ICOSAPENT ETHYL 1 GM PO SCH (09:50)
[2017-06-27] MEDS: LEVAQUIN 500 MG in PREMIX 100 ML D5W 1 BAG IV SCH (09:51)
[2017-06-27] MEDS: PLAVIX PO SCH (09:52)
[2017-06-27] MEDS: ZESTRIL PO SCH (09:52)
[2017-06-27] MEDS: MACROBID PO SCH (20:28)
[2017-06-27] MEDS: TRIGLIDE PO SCH (20:28)
[2017-06-27] MEDS: ZOLOFT PO SCH (20:28)
[2017-06-27] MEDS: CRESTOR PO SCH (20:28)
[2017-06-27] MEDS: MAGNESIUM OXIDE 250 MG PO SCH (20:29)
[2017-06-28] MEDS: ZANTAC PO SCH ×2 (06:06→16:35)
[2017-06-28] MEDS: PRILOSEC PO SCH (06:06)
[2017-06-28] MEDS: DEXTROSE 5%-1/2NS IV SOLUTION 1,000 ML IV SCH (06:06)
[2017-06-28] MEDS: LASIX TAB PO SCH (06:06)
--- NOTE | 2017-06-28 08:04 | HP ---
DATE OF SERVICE: 06/26/17 REASON FOR HOSPITALIZATION/HISTORY OF PRESENT ILLNESS: swelling around clavicle on right and left side of neck, very mild on left side , no fever and mild tenderness duration of 2. days. PAST MEDICAL HISTORY: CVA 2004 Back injury surgery 1985 Recurrent UTI Esophageal Reflux History of hypertension Depression Chronic kidney disease Osteoarthritis GERD History of diverticulosis PAST SURGICAL HISTORY: Tonsils Appendix REVIEW OF SYSTEMS: CONSTITUTIONAL: No fever, no fatigue. HEENT: No sinus drainage, no sore throat. RESPIRATORY: No cough, no congestion. CARDIOVASCULAR: No atypical chest pain for coronary artery disease. No angina , CHF symptoms, palpitations or shortness of breath. GASTROINTESTINAL: No melena or abdominal pain. No GERD. GENITOURINARY: No hematuria, no prostatism, no polyuria. SLOT OPERATIONS MANAGER: No blackout, no dizziness, no headache, no double vision. MUSCULOSKELETAL: No osteoarthritis pain, no joint swelling. ENDOCRINE: No weight loss, no weight gain. SKIN: Not dry, no rash. PSYCHIATRIC: Not anxious, no depression, no suicidal thoughts, no homicidal thoughts. SOCIAL HISTORY: Marital Status: . Alcohol Usage: No. Tobacco Usage: No. FAMILY HISTORY: Mother emphysema, COPD Brothers 2 Sister 1 MEDICATIONS: Prilosec 20mg daily Tricor 48mg one tablet once daily Nystatin 100million unit powder apply by effected area route three times per day Antivert 25mg one tablet PO two times per day PRN Furosemide 20mg take one tablet PO one time per day Zoloft 25mg take one tablet PO once daily Oxybutynin Chloride 15mg tablet extended release 24 hour one tablet by oral route time per day Vascepa 1 gram capsule, take two capsules by oral route with good one time per day Crestor 20mg take one tablet PO one time per day Ranitidine HCL 150mg take one tablet PO two times per day Plavix 75mg PO once daily Metformin 500mg take one tablet PO one time per day Flector 1.3% adhesive patch apply one patch to most painful area by transfermal route two times per day Fish oil Spironolactone 25mg take one tablet PO two times per day Magnesium 250mg daily Lisinopril 2.5mg daily ALLERGIES: Atorvastatin Bacitracin Bacitracin Zinc Cephalexin Cephalexin monohydrate Clarithromycin Iodinated contrast oral and IV Neomycin sulfate Polymyxin Sulfa PHYSICAL EXAMINATION: V/S: Pulse 98, blood pressure 118/74, temperature 98.6 and pulse ox 96%> GENERAL APPEARANCE: Oriented times three. HEENT: Normal. Right side supraclavicular swelling, soft. NECK: No JVP, no bruits. RESPIRATORY: Lungs are clear. CARDIOVASCULAR: S1, S2, no S3, no murmurs. No cyanosis, clubbing. No ascites. GI/ABDOMEN: No tenderness. Bowel sounds are active. EXTREMITIES: edema, pulses +1, equal. SLOT OPERATIONS MANAGER: Deep tendon reflexes, sensory, motor and gait all normal. RECTAL: refused/PELVIC:Advised yearly, Colocare refused. ASSESSMENT: 1. Flue syndrome with nausea 2. Cervical/supraclavicular lymphadenitis, right 3. Dehydration 4. GERD 5. Hard of hearing 6. Recurrent UTI 7. Hypertension 8. Esophageal reflux 9. Dyslipidemia 10.CVA with right sided hemiparesis 11.Depression 12.Chronic kidney disease stage 2 13.Obesity 14.Left knee osteoarthritis PLAN: 1. Admit to regular 2. Diet 2500 calories ADA 3. Accu-checks four times a day with sliding scale 4. CBC and CMP today and daily AM 5. T4 TSH 6. Levaquin 500mg IV today and AM 7. 1cc Decadron in today and tomorrow AM 8. X-ray chest 9. CT scan right supraclavicular area and right cervical area 10.Urinalysis with culture and sensitivity 11.Continue all home medications 12.1000cc D5 1/2 normal saline 12 hourly 13.EKG/Telemetry times 24 hours 14.Rapid Flu A & B ADDENDUM: Rapid Flu A&B negative. Hgb 12.7, hct 37, WBC 7,900 with normal differential. U/ A normal. Chest x-ray no acute findings. CT scan of the neck no acute findings. TIME SPENT: More than 70 minutes. MTDD
--- NOTE | 2017-06-28 09:35 | PCM.PROG ---
Attending Provider: ATTENDING PROVIDER: Dr. JAIME SHETH This patient is seen with Shamika Merritt, Nurse Practitioner. DATE OF SERVICE: 06/28/17 SUBJECTIVE: This 61 year old WHITE/ F was hospitalized 06/26/17. The patient is awake, alert sitting up in chair. She still has swelling of tje lymph nodes No fever. REVIEW OF SYSTEMS: CONSTITUTIONAL: No night sweats. No fatigue, malaise, lethargy. No fever or chills. HEENT: Eyes: No visual changes. No eye pain. No eye discharge. ENT: No runny nose. No epistaxis. No sinus pain. No odynophagia. No congestion. RESPIRATORY: No cough, no congestion. No hemoptysis. No shortness of breath. CARDIOVASCULAR: No angina symptoms. No CHF symptoms. No atypical chest pain for CAD. No palpitations. No orthopnea.. GASTROINTESTINAL: No abdominal pain. No nausea or vomiting. No diarrhea or constipation. No hematemesis. No hematochezia. GENITOURINARY: No urgency. No frequency. No dysuria. No hematuria. No obstructive symptoms. No discharge. No pain. No significant abnormal bleeding. MUSCULOSKELETAL: Right clavicular swelling and weakness. NEUROLOGICAL: Awake, alert, oriented to time, place and person. No headache. No neck pain. No syncope. No seizures. No dizziness. PSYCHIATRIC: Not anxious. No depression. No suicidal thoughts. No homicidal thoughts. SKIN: No rash. No lesions. No wounds. ENDOCRINE: No unexplained weight loss. No weight gain. HEMATOLOGIC/LYMPHATIC: No anemia. No purpura. No petechiae. No prolonged or excessive bleeding. No palpable lymph nodes. PHYSICAL EXAMINATION: GENERAL: The patient is awake, alert and oriented, sitting in chair in no distress. VITAL SIGNS: Temperature 97.7 F, Pulse 57, Respiratory Rate 20, BP 86/56, Pulse Ox 97% HEENT: Head normocephalic, atraumatic. Eyes: Extraocular muscles are intact. Pupils are equal, round and reactive to light and accommodation. Ears: No lesions. Nose appeared normal. Throat: No exudate or erythema. NECK: Supple. No JVD, no carotid bruit. No thyromegaly. Right anterior cervical chain swelling with questionable right supraclavicular node, enlarged; mild tenderness with still surrounding edema. LUNGS: Diminished breath sounds bilaterally. Clear to auscultation. Percussion note normal. Chest symmetrical. HEART: S1, S2, no S3. No murmurs. No cyanosis or clubbing. No ascites. Pulses: Dorsalis pedis and posterior tibial pulses +1 to +2 both sides. ABDOMEN: Soft. Non-tender. Bowel sounds active. No CVA tenderness. No mass felt. EXTREMITIES: No edema. Full range of motion of all extremities, equal. NEUROLOGIC: No focal deficit. Cranial nerves II through XII are grossly intact. No headache, no double vision or headache. SKIN: Not dry. Intact. Turgor-normal. LYMPHATIC: No palpable lymph nodes/no lymphedema. MUSCULOSKELETAL: Normal joints with no swelling. Muscle tone is normal. LAB REVIEW: 06/28/17 04:30 06/28/17 04:30 06/28/17 04:30: Sodium 136, Potassium 4.0, Chloride 103, Carbon Dioxide 24, Anion Gap 13.0, BUN 23 H, Creatinine 1.20, Estimated GFR (MDRD) 45.00, BUN/ Creatinine Ratio 19.16, Glucose 217 H, Calcium 9.6, Total Bilirubin 0.3, AST 13 L, ALT 14, Alkaline Phosphatase 40 L, Total Protein 7.3, Albumin 3.3 L, Globulin 4.0, Albumin/Globulin Ratio 0.83 06/28/17 04:30: WBC 10.56 H, RBC 3.92 L, Hgb 11.6 L, Hct 35.0 L, MCV 89.3, MCH 29.6, MCHC 33.1, RDW Coeff of Naty 12.9, Plt Count 315, Immature Gran % (Auto) 0.4, Neut % (Auto) 74.4, Lymph % (Auto) 17.5, [place] % (Auto) 7.4, Eos % (Auto) 0.1, Baso % (Auto) 0.2, Immature Gran # (Auto) 0.0, Neut # 7.9 H, Lymph # 1.9, [place] # 0.8, Eos # 0.0, Baso # 0.0 ASSESSMENT: 1. Mild cervical lymphadenopathy noted with swelling. 2. Hypotension PLAN: 1. D/C IV fluids 2. Bartonella Henselae titer (cat scratch fever) 3. Flonase two sprays daily 4. Continue IV Levaquin Plan and coordination of the patient's care discussed in the presence of Extractions Technician and nurse. CONDITION: Stable SCRIBED BY: AIMEE HODGE Dopster scribed while in presence of service performed by Dr. Sheth/Shamika Merritt APRN on 06/28/17 ([id number])
[2017-06-28] MEDS: DICLOFENAC EPOLAMINE TD SCH ×2 (09:40→20:38)
[2017-06-28] MEDS: LEVAQUIN 500 MG in PREMIX 100 ML D5W 1 BAG IV SCH (09:42)
[2017-06-28] MEDS: ALDACTONE PO SCH ×2 (09:44→20:37)
[2017-06-28] MEDS: DITROPAN XL PO SCH (09:44)
[2017-06-28] MEDS: FLONASE NAS SCH (09:45)
[2017-06-28] MEDS: GLUCOPHAGE PO SCH (09:45)
[2017-06-28] MEDS: ICOSAPENT ETHYL 1 GM PO SCH (09:46)
[2017-06-28] MEDS: MACROBID PO SCH ×2 (09:46→20:39)
[2017-06-28] MEDS: ZESTRIL PO SCH (09:47)
[2017-06-28] MEDS: PLAVIX PO SCH (09:47)
[2017-06-28] MEDS: ZOLOFT PO SCH (20:37)
[2017-06-28] MEDS: CRESTOR PO SCH (20:38)
[2017-06-28] MEDS: TRIGLIDE PO SCH (20:38)
[2017-06-28] MEDS: MAGNESIUM OXIDE 250 MG PO SCH (20:39)
[2017-06-29 05:10] VITALS: TEMP 97.9
[2017-06-29] MEDS: LASIX TAB PO SCH (05:55)
[2017-06-29] MEDS: PRILOSEC PO SCH (05:55)
[2017-06-29] MEDS: ZANTAC PO SCH (05:55)
[2017-06-29] MEDS ORDERED: ZESTRIL PO PRN (08:28)
[2017-06-29] MEDS: LEVAQUIN 500 MG in PREMIX 100 ML D5W 1 BAG IV SCH (09:11)
[2017-06-29] MEDS: FLONASE NAS SCH (09:13)
[2017-06-29] MEDS: ALDACTONE PO SCH (09:13)
[2017-06-29] MEDS: DICLOFENAC EPOLAMINE TD SCH (09:13)
[2017-06-29] MEDS: GLUCOPHAGE PO SCH (09:13)
[2017-06-29] MEDS: DITROPAN XL PO SCH (09:13)
[2017-06-29] MEDS: PLAVIX PO SCH (09:13)
[2017-06-29] MEDS: MACROBID PO SCH (09:14)
[2017-06-29] MEDS: ICOSAPENT ETHYL 1 GM PO SCH (09:14)
[2017-06-29 09:41] VITALS: BP 102/59
--- NOTE | 2017-06-29 10:10 | CM.DICTOOL ---
ADMISSION: 06/26/17 12:02 DISCHARGE: 2017 DATE OF SERVICE: 06/29/17 FINAL DIAGNOSIS CERVICAL/SUPRACLAVICULAR LYMPHADENITIS, RIGHT DEHYDRATION RECURRENT UTI (MACROBID PRESCRIBED BY DR. RODRIGUEZ) DIABETES, TYPE 2 CHRONIC KIDNEY DISEASE, STAGE 2 CVA WITH RIGHT HEMIPARESIS, 2003 DYSLIPIDEMIA HISTORY OF HYPERTENSION OSTEOARTHRITIS GERD DIVERTICULOSIS DEPRESSION BACK SURGERY, 1985 CHOLECYSTECTOMY APPENDECTOMY LAST VITALS Temp Pulse Resp BP Pulse Ox 97.9 F 65 18 104/63 97 06/29/17 05:09 06/29/17 05:09 06/29/17 05:09 06/29/17 05:09 06/29/17 05:09 ACTIVE HOME MEDICATIONS Clopidogrel Bisulfate (Plavix) 75 mg PO DAILY [facility] Last Admin: 06/29/17 09:13 Dose: 75 mg Fenofibrate (Triglide) 54 mg PO BEDTIME [facility] Last Admin: 06/28/17 20:38 Dose: 54 mg Furosemide (Lasix Tab) 20 mg PO QDAC [facility] Last Admin: 06/29/17 05:55 Dose: 20 mg Lisinopril (Zestril) 2.5 mg PO DAILY PRN PRN Reason: hypertension Metformin HCl (Glucophage) 500 mg PO DAILYWM [facility] Last Admin: 06/29/17 09:13 Dose: 500 mg Nitrofurantoin Macrocrystals (Macrobid) 100 mg PO BID [facility] Last Admin: 06/29/17 09:14 Dose: 100 mg Non-Formulary Medication (Diclofenac Epolamine [Flector]) 1 each TD BID [facility] Last Admin: 06/29/17 09:13 Dose: 1 each Non-Formulary Medication (Icosapent Ethyl [Vascepa]) 1 g PO DAILY [facility] Last Admin: 06/29/17 09:14 Dose: Not Given Non-Formulary Medication (Magnesium Oxide [Magnesium]) 250 mg PO BEDTIME [facility] Last Admin: 06/28/17 20:39 Dose: Not Given Omeprazole (Prilosec) 20 mg PO QDAC [facility] Last Admin: 06/29/17 05:55 Dose: 20 mg Oxybutynin Chloride (Ditropan Xl) 15 mg PO DAILY [facility] Last Admin: 06/29/17 09:13 Dose: 15 mg Ranitidine HCl (Zantac) 150 mg PO BIDAC [facility] Last Admin: 06/29/17 05:55 Dose: 150 mg Rosuvastatin Calcium (Crestor) 20 mg PO BEDTIME [facility] Last Admin: 06/28/17 20:38 Dose: 20 mg Sertraline HCl (Zoloft) 25 mg PO BEDTIME [facility] Last Admin: 06/28/17 20:37 Dose: 25 mg Spironolactone (Aldactone) 25 mg PO BID [facility] Last Admin: 06/29/17 09:13 Dose: 25 mg ALLERGIES atorvastatin calcium [From Lipitor] Adverse Reaction (Verified 03/23/17 11:16) bacitracin [From Neosporin ([id number])] Adverse Reaction (Verified 03/23/17 11:16) bacitracin zinc [From Neosporin ([id number])] Adverse Reaction (Verified 08/04 11:16) cephalexin [From Keflex] Adverse Reaction (Verified 06/13/17 17:34) cephalexin monohydrate [From Keflex] Adverse Reaction (Verified 03/23/17 11:16) clarithromycin [From Biaxin] Adverse Reaction (Verified 03/23/17 11:28) Iodinated Contrast- Oral and IV Dye Adverse Reaction (Verified 03/23/17 11:16) neomycin sulfate [From Neosporin ([id number])] Adverse Reaction (Verified 08/04 11:16) polymyxin B [From Neosporin ([id number])] Adverse Reaction (Verified 11:16) Sulfa (Sulfonamide Antibiotics) Adverse Reaction (Verified 03/23/17 11:16) NEW PRESCRIPTIONS: LEVAQUIN 500 MG DAILY FOR 7 DAYS SMOKING: NOT APPLICABLE DISEASE SPECIFIC EDUCATION: PRESCRIPTION APPOINTMENT CERVICAL SWELLING HYDRATION LAB REVIEW: 06/29/17 04:45 06/29/17 04:45 06/29/17 04:45: Sodium 138, Potassium 4.2, Chloride 104, Carbon Dioxide 25, Anion Gap 13.2, BUN 30 H, Creatinine 1.27, Estimated GFR (MDRD) 42.00, BUN/ Creatinine Ratio 23.62, Glucose 88, Calcium 9.4, Total Bilirubin 0.3, AST 11 L, ALT 12, Alkaline Phosphatase 41 L, Total Protein 6.2, Albumin 3.6, Globulin 2.6 , Albumin/Globulin Ratio 1.38 02/09/18 04:45: WBC 7.93, RBC 4.04 L, Hgb 12.0, Hct 36.2 L, MCV 89.6, MCH 29.7, MCHC 33.1, RDW Coeff of Naty 13.1, Plt Count 269, Immature Gran % (Auto) 0.3, Neut % (Auto) 47.7, Lymph % (Auto) 42.2, Pennington % (Auto) 7.8, Eos % (Auto) 1.5, Baso % (Auto) 0.5, Immature Gran # (Auto) 0.0, Neut # 3.8, Lymph # 3.4, Pennington # 0.6, Eos # 0.1, Baso # 0.0 PLAN: DISCHARGE HOME DIET: CONSISTENT CARBOHYDRATES ACTIVITY: RESUME ACTIVITY TOLERATED CONTINUE MEDICATIONS LISTED ON NURSING DISCHARGE INFORMATION SHEET TAKE BLOOD PRESSURE DAILY CHECK BLOOD SUGAR 1-2 TIMES DAILY AN APPOINTMENT IS SCHEDULED WITH DR. SHETH/PRIMO SANTANA APRN ON AT 11 AM MS. KENNY IS ALERT AND ORIENTED X 3. HER SPEECH IS HESITANT, BUT CLEAR DUE TO PREVIOUS CVA. SHE HAS RIGHT SIDE HEMIPARESIS DUE TO PREVIOUS CVA, BUT IS ABLE TO TRANSFER SELF FROM BED TO CHAIR WITH MINIMAL ASSISTANCE OF THE NURSING STAFF. SHE UTILIZES A CANE FOR STABILITY. SHE IS CONTINENT OF BLADDER AND BOWEL. MEAL INTAKES ARE FAIR AT 25-50%. NO ABDOMINAL PAIN OR NAUSEA REPORTED. NO CHILLS OR FEVER DURING HER HOSPITAL STAY. SKIN IS INTACT AND FREE OF DECUBITUS ULCERS, RASHES OR IRRITATION. SHE LIVES WITH HER SON. SHE HAS A CANE , WHEELCHAIR AND HAS A HOMEMAKER THRU DORS. JAIME SHETH MD PRIMO SANTANA APRN
--- NOTE | 2017-06-29 10:56 | PCM.PROG ---
Attending Provider: ATTENDING PROVIDER: Dr. JAIME LUJAN This patient is seen with Shamika Merritt, Nurse Practitioner. DATE OF SERVICE: 06/29/17 SUBJECTIVE: This 61 year old WHITE/ F was hospitalized 06/26/17. Sitting in chair , alert. Swelling has improved somewhat. REVIEW OF SYSTEMS: CONSTITUTIONAL: Weakness due to CVA. No night sweats. No malaise, lethargy. No fever or chills. HEENT: Eyes: No visual changes. No eye pain. No eye discharge. ENT: No runny nose. No epistaxis. No sinus pain. No odynophagia. No congestion. Neck: Right cervical lymphadenopathy. RESPIRATORY: No cough, no congestion. No hemoptysis. No shortness of breath. CARDIOVASCULAR: No angina symptoms. No CHF symptoms. No atypical chest pain for CAD. No palpitations. No orthopnea.. GASTROINTESTINAL: No abdominal pain. No nausea or vomiting. No diarrhea or constipation. No hematemesis. No hematochezia. GENITOURINARY: No urgency. No frequency. No dysuria. No hematuria. No obstructive symptoms. No discharge. No pain. No significant abnormal bleeding. MUSCULOSKELETAL: No musculoskeletal pain; no joint swelling. NEUROLOGICAL: Awake, alert, oriented to time, place and person. No headache. No neck pain. No syncope. No seizures. No dizziness. PSYCHIATRIC: Not anxious. No depression. No suicidal thoughts. No homicidal thoughts. SKIN: No rash. No lesions. No wounds. ENDOCRINE: No unexplained weight loss. No weight gain. HEMATOLOGIC/LYMPHATIC: No anemia. No purpura. No petechiae. No prolonged or excessive bleeding. No palpable lymph nodes. PHYSICAL EXAMINATION: GENERAL: The patient is awake, alert and oriented, sitting in chair in no distress. VITAL SIGNS: Temperature 97.9 F, Pulse 65, Respiratory Rate 18, BP 104/63, Pulse Ox 97% HEENT: Head normocephalic, atraumatic. Eyes: Extraocular muscles are intact. Pupils are equal, round and reactive to light and accommodation. Ears: No lesions. Nose appeared normal. Throat: No exudate or erythema. NECK: Supple. No JVD, no carotid bruit. Improved right cervical chain swelling ; nontender; soft. LUNGS: Diminished breath sounds bilaterally. Clear to auscultation. Percussion note normal. Chest symmetrical. HEART: S1, S2, no S3. No murmurs. No cyanosis or clubbing. No ascites. Pulses: Dorsalis pedis and posterior tibial pulses +1 to +2 both sides. ABDOMEN: Soft. Non-tender. Bowel sounds active. No CVA tenderness. No mass felt. EXTREMITIES: No edema. Full range of motion of all extremities, equal. NEUROLOGIC: No focal deficit. Cranial nerves II through XII are grossly intact. No headache, no double vision or headache. SKIN: Riddle, warm and dry. Intact. Turgor-normal. LYMPHATIC: No palpable lymph nodes/no lymphedema. MUSCULOSKELETAL: Normal joints with no swelling. Muscle tone is normal. LAB REVIEW: 06/29/17 04:45 06/29/17 04:45 06/29/17 04:45: Sodium 138, Potassium 4.2, Chloride 104, Carbon Dioxide 25, Anion Gap 13.2, BUN 30 H, Creatinine 1.27, Estimated GFR (MDRD) 42.00, BUN/ Creatinine Ratio 23.62, Glucose 88, Calcium 9.4, Total Bilirubin 0.3, AST 11 L, ALT 12, Alkaline Phosphatase 41 L, Total Protein 6.2, Albumin 3.6, Globulin 2.6 , Albumin/Globulin Ratio 1.38 06/29/17 04:45: WBC 7.93, RBC 4.04 L, Hgb 12.0, Hct 36.2 L, MCV 89.6, MCH 29.7, MCHC 33.1, RDW Coeff of Naty 13.1, Plt Count 269, Immature Gran % (Auto) 0.3, Neut % (Auto) 47.7, Lymph % (Auto) 42.2, Christian % (Auto) 7.8, Eos % (Auto) 1.5, Baso % (Auto) 0.5, Immature Gran # (Auto) 0.0, Neut # 3.8, Lymph # 3.4, Christian # 0.6, Eos # 0.1, Baso # 0.0 ASSESSMENT: 1. Mild cervical lymphadenopathy noted with swelling. 2. Hypotension 3. UTI PLAN: 1. D/C home 2. Levaquin 500 mg daily times 7 days 3. Complete Macrobid that was given by Dr. Robbins 4. Zestril as directed at home 5. See in office on Sunday with Dr. Lujan/Shamika Merritt APRN 6. Cat scratch titer pending Plan and coordination of the patient's care discussed in the presence of Child Caregiver and nurse. CONDITION: Stable SCRIBED BY: AIMEE HODGE [employer] Teacher scribed while in presence of service performed by Dr. Lujan/Shamika Merritt APRN on 06/29/17 ([id number])
--- NOTE | 2017-07-03 10:57 | PN ---
06/26/17: Level 5 06/27/17: Intermediate 06/28/17: Intermediate 06/29/17: D as in discharge MTDD
--- NOTE | 2017-07-05 09:31 | PN ---
DATE OF SERVICE: 06/28/17 SUBJECTIVE: The patient was seen with the Nurse Practitioner. The patient is doing well practically no swelling. PHYSICAL EXAMINATION: VITAL SIGNS: Temperature 97.7, pulse 60, respiratory rate 20, blood pressure 90 /56 and pulse ox 97%. HEENT: Head normocephalic, atraumatic. Eyes: Extraocular muscles are intact. Pupils are equal, round and reactive to light and accommodation. Ears: No lesions. Nose appeared normal. Throat: No exudate or erythema. NECK: Supple. No JVD, no carotid bruit. No lymphadenopathy or thyromegaly. Mild swelling of the midcervical lymph node LUNGS: Clear to auscultation. Percussion note normal. Chest symmetrical. HEART: S1, S2, no S3. No murmurs. No cyanosis or clubbing. No ascites. Pulses: Dorsalis pedis and posterior tibial pulses +1 to +2 both sides. ABDOMEN: Soft. Nontender. Bowel sounds active. No CVA tenderness. No mass felt. EXTREMITIES: No edema. Full range of motion of all extremities, equal. NEUROLOGIC: No focal deficit. Cranial nerves II through XII are grossly intact. No headache, no double vision or headache. SKIN: Not dry. Intact. Turgor - normal. LYMPHATIC: No palpable lymph nodes/no lymphedema. MUSCULOSKELETAL: Normal joints with no swelling. Muscle tone is normal. PLAN: 1. Continue antibiotics and steroids. CONDITION: Stable. TIME SPENT: More than 30 minutes. Plan and coordination of the patient's care discussed in the presence of nurse. CONRAD
--- NOTE | 2017-07-05 12:33 | PN ---
DATE OF SERVICE: 06/29/17 SUBJECTIVE: The patient was hospitalized with right subclavicular lymphadenitis and cervical lymphadenitis likely from cat scratch. The patient's condition improved with IV antibiotics and steroids. She is feeling better. She is afebrile. The patient was seen and examined with Nurse Practitioner. TIME SPENT: More than 30 minutes. Plan and coordination of the patient's care discussed in the presence of nurse. CONRAD
--- NOTE | 2017-07-26 10:47 | DS ---
DATE OF SERVICE: 06/29/17 FINAL DIAGNOSIS: 1. CERVICAL/SUPRACLAVICULAR LYMPHADENITIS, RIGHT 2. DEHYDRATION 3. RECURRENT UTI (MACROBID PRESCRIBED BY DR. RODRIGUEZ) 4. DIABETES, TYPE 2 5. CHRONIC KIDNEY DISEASE, STAGE 2 6. CVA WITH RIGHT HEMIPARESIS, 2003 7. DYSLIPIDEMIA 8. HISTORY OF HYPERTENSION 9. OSTEOARTHRITIS 10. GERD 11. DIVERTICULOSIS 12. DEPRESSION 13. BACK SURGERY, 1984 14. CHOLECYSTECTOMY 15. APPENDECTOMY DISCHARGE INSTRUCTIONS: 1. Followup appointment is scheduled with Dr. Lujan/Shamika Merritt APRN on at 11 a.m. 2. Take blood pressure daily 3. Check blood sugar 1-2 times daily MEDICATIONS AT DISCHARGE: Plavix 75 mg p.o. daily [facility] Triglide 54 mg p.o. bedtime [facility] Lasix 20 mg p.o. q.d a.c. [facility] Zestril 2.5 mg p.o. daily p.r.n. Glucophage 500 mg p.o. daily with meal [facility] Macrobid 100 mg p.o. b.i.d. [facility] Flector one each TD b.i.d [facility] Vascepal 1 gm p.o. daily [facility] Magnesium 250 mg p.o. bedtime [facility] Prilosec 20 mg p.o. q.d a.c. [facility] Ditropan XL 15 mg p.o. daily [facility] Zantac 150 mg p.o. b.i.d. a.c. [facility] Crestor 20 mg p.o. bedtime [facility] Zoloft 25 mg p.o. bedtime [facility] Aldactone 25 mg p.o. b.i.d. [facility] NEW PRESCRIPTIONS: Levaquin 500 mg daily for 7 days DIET INSTRUCTIONS: Consistent carbohydrates ACTIVITY: Resume activity as tolerated SMOKING: N/A DISEASE SPECIFIC EDUCATION: Prescription Appointment Cervical swelling HOSPITAL COURSE: This is a 61-year-old white female who presented to our office with right cervical lymphadenopathy and questionable supraclavicular lymphadenopathy on the right. She had not been running any fever. She stated the swelling had occurred over the past 2 to 3 days. It was somewhat tender but there was some firmness felt. She stated she had been having some nausea. She was admitted, placed on IV fluids, D5 1/2 NS at 83 cc/hr, started on Levaquin IV [address] scan of soft tissue of the neck revealed lymphadenitis. No supraclavicular lymphadenopathy all anterior cervical chain. Over the course of the past several days the swelling has gradually improved. She has remained afebrile. Her nausea has resolved. White count has remained within normal limits during our hospital stay. Over the first two days again there was gradual reduction in swelling and improvement in tenderness. Today, on day of discharge, she still has some slight swelling. She is nontender. There is no erythema. We did a cat scratch titer yesterday which the results are still pending. The patient states that she does have three cats at home, one of which is a young cat. Considering that it may be Bartonella Leos, the Levaquin should give coverage. She is also currently on Macrobid 100 mg b.i.d. because she has recurrent UTIs and is followed by Dr. Rodriguez. She was started on the Macrobid prior to being admitted due to an abnormal urine culture from Dr. Rodriguez so that she will finish her 7 day course of this medicine at home. Will discharge her home and she will finish 7 more days of Levaquin 500 mg. Initially she was given 1 cc of Decadron on admission. She will not go home with any steroids. Her vital signs have remained steady. She does have a history of hypotension since having a stroke in 2003. She is asymptomatic with this hypotension. Her vital signs have remained steady today. Temperature 97.9, heart rate 65, respirations 18, BP 104/63, pulse ox 97%. Sugar was slightly elevated on admission which is thought to be due to the Decadron IM. It has since normalized, was 88 this morning. She does take 500 mg Metformin daily. She is discharged home in stable condition today. Again, labs are stable. White count 7.9, hemoglobin 12.0, hematocrit 36.2, sodium 138, potassium 4.2, BUN 30, creatinine 1.27. Again, Cat scratch titers are pending. She will go home with Levaquin p.o. for the next week. Continue her Macrobid and we will followup with her on Sunday of next week. If over the course of the weekend, the swelling worsens or she develops a fever, she is instructed to go to the emergency room. TIME SPENT: More than 60 minutes. MTDD
== END 2017-06-29 11:31 | disposition home or self-care (01) | DRG 814 ==
LOC: MEDSURG A 12:02
PROVIDERS: ADMIT Internal Medicine; ATTEND Internal Medicine
DX: I88.8 Other nonspecific lymphadenitis (principal); I63.9 Cerebral infarction, unspecified; G81.91 Hemiplegia, unspecified affecting right dominant side; E86.0 Dehydration; J10.2 Influenza due to other identified influenza virus with gastrointestinal manifestations; R11.0 Nausea; E11.8 Type 2 diabetes mellitus with unspecified complications; Z79.84 Long term (current) use of oral hypoglycemic drugs; N18.2 Chronic kidney disease, stage 2 (mild); K21.9 Gastro-esophageal reflux disease without esophagitis; H91.90 Unspecified hearing loss, unspecified ear; E78.5 Hyperlipidemia, unspecified; I10 Essential (primary) hypertension; K57.90 Diverticulosis of intestine, part unspecified, without perforation or abscess without bleeding; F32.9 Major depressive disorder, single episode, unspecified; I12.9 Hypertensive chronic kidney disease with stage 1 through stage 4 chronic kidney disease, or unspecified chronic kidney disease; E66.9 Obesity, unspecified; M17.12 Unilateral primary osteoarthritis, left knee; Z87.440 Personal history of urinary (tract) infections
CPT/HCPCS: 36415; 80053; 81001; 82962; 84436; 84443; 85025; 87471; 87502; 87651; 93005; 93010; 99223; 99232; 99239

== ENCOUNTER 2017-07-19 14:05 | Outpatient (CLI) | END 2017-07-19 14:06 | disposition home or self-care (01) | LOC: LAB 14:05 | PROVIDERS: ATTEND Internal Medicine | DX: R30.0 Dysuria (principal); R35.0 Frequency of micturition | CPT/HCPCS: 81001; 87086; 87186 ==

== ENCOUNTER 2017-07-25 16:23 | Outpatient (CLI) | payer OTHER ==
[2017-07-25] MEDS ORDERED: SODIUM CHLORIDE IV ONE (17:00)
[2017-07-25] MEDS ORDERED: GENTAMICIN SULFATE IV ONE (17:00)
[2017-07-25 17:02] VITALS: BP 98/68; TEMP 97.1
== END 2017-07-25 16:24 | disposition home or self-care (01) ==
LOC: LAB 16:23
PROVIDERS: ATTEND Internal Medicine Infectious Disease
DX: B96.29 Other Escherichia coli [E. coli] as the cause of diseases classified elsewhere (principal); N39.0 Urinary tract infection, site not specified; Z68.35 Body mass index [BMI] 35.0-35.9, adult
CPT/HCPCS: 36415; 80048

== ENCOUNTER 2017-07-26 16:13 | Outpatient (CLI) ==
[2017-07-26 16:52] VITALS: BP 136/74; TEMP 97.6
[2017-07-26] MEDS ORDERED: SODIUM CHLORIDE IV SCH (17:00)
[2017-07-26] MEDS ORDERED: GENTAMICIN SULFATE IV SCH (17:00)
== END 2017-07-26 16:14 | disposition home or self-care (01) ==
LOC: OPMED 16:13
PROVIDERS: ATTEND Internal Medicine Infectious Disease
DX: B96.29 Other Escherichia coli [E. coli] as the cause of diseases classified elsewhere (principal); N39.0 Urinary tract infection, site not specified; Z68.35 Body mass index [BMI] 35.0-35.9, adult
CPT/HCPCS: 96365

== ENCOUNTER 2017-07-27 16:02 | Outpatient (CLI) ==
[2017-07-27 16:19] VITALS: BP 124/64; TEMP 98.2
[2017-07-27] MEDS ORDERED: SODIUM CHLORIDE IV ONE (16:30)
[2017-07-27] MEDS ORDERED: GENTAMICIN SULFATE IV ONE (16:30)
== END 2017-07-27 16:03 | disposition home or self-care (01) ==
LOC: OPMED 16:02
PROVIDERS: ATTEND Internal Medicine Infectious Disease
DX: B96.29 Other Escherichia coli [E. coli] as the cause of diseases classified elsewhere (principal); N39.0 Urinary tract infection, site not specified; Z68.35 Body mass index [BMI] 35.0-35.9, adult
CPT/HCPCS: 96365

== ENCOUNTER 2017-07-30 15:49 | Outpatient (CLI) | END 2017-07-30 15:50 | disposition home or self-care (01) | LOC: LAB 15:49 | PROVIDERS: ATTEND Internal Medicine | DX: I10 Essential (primary) hypertension (principal); N39.0 Urinary tract infection, site not specified | CPT/HCPCS: 36415; 80053; 85025 ==

== ENCOUNTER 2017-07-31 08:06 | Outpatient (CLI) ==
--- NOTE | 2017-07-31 13:13 | MRI ---
EXAM: MRI soft tissue neck without IV contrast. DATE: 07/31/2017. HISTORY: Right neck swelling. TECHNIQUE: Multiplanar, multisequence imaging of the soft tissues of the neck was performed without IV contrast, using 1.2 Marnie magnet. Note: Motion artifacts on multiple sequences limit overall sensitivity. COMPARISON: CT soft tissue neck 22 June 2017. MRI brain 09 Oct 2013. FINDINGS: Visible portion of the brain reveals T2W/IR hyperintensity within the left temporal /front al / parietal lobes, corresponding with old left MCA infarct with encephalomalacia. Third ventricle is somewhat prominent. Fourth ventricle is upper normal size. Mild cerebellar atrophy is evident. Mastoid air cells are unremarkable. The seventh/eighth cranial nerve complex abnormality is identifi ed. Left vertebral artery is dominant. Visible paranasal sinuses are clear. Pituitary gland is smal l in size, with CSF filling part of the pituitary fossa. No thyroid, submandibular, or parotid gland neoplasm is evident. Bilateral parotid gland fatty infil tration is noted. Trachea, larynx, and epiglottis are grossly normal. Several small anterior cervic al chain lymph nodes are present bilaterally. No definitive cervical lymphadenopathy, suspicious nec k mass, supraclavicular lymphadenopathy, apical lung mass, pneumonia, or pleural effusion is evident. Superior mediastinum reveals no lymphadenopathy or mass. Trachea and mainstem bronchi are grossly normal. T2W/IR mild hyperintensity within the posterior superior aspect of the left sternocleidomast oid muscle on the coronal sequences does not have corresponding abnormality on axial images and is li wayne an artifact. No definitive inflammatory process, skin thickening, or abscess involving skin/sub cutaneous tissues. Prominent osteophytes are noted at several cervical levels. Cervical vertebrae normal in height. Mo derate C4-5 and mild C5-6 disc space narrowing is detected. Disc/osteophyte complexes cause multilev el central canal stenoses (C3-4: Minor. C4-5: Moderate. C5-6: Marked. C6-7: Moderate.) Multile maribeth cervical cord flattening. No syrinx or myelomalacia is evident. Multilevel cervical foraminal s tenoses are suspected, but not optimally visualized on these 5 mm thick slices. IMPRESSIONS: 1. No distinct neck mass, abscess, lymphadenopathy, or inflammatory process. 2. Bilateral parotid gland fatty infiltration. 3. Left MCA old infarct / encephalomalacia. 4. Mild cerebral and cerebellar atrophy. 5. Small pituitary gland - nearly empty sella. 6. Multilevel cervical DDD, central canal stenoses and foraminal stenoses. If symptoms warrant furt her evaluation, consider dedicated MRI or CT scan of the cervical spine.
== END 2017-07-31 08:07 | disposition home or self-care (01) ==
LOC: RAD 08:06
PROVIDERS: ATTEND Internal Medicine
DX: R22.1 Localized swelling, mass and lump, neck (principal)

== ENCOUNTER 2017-11-29 12:45 | Outpatient (CLI) | payer OTHER | END 2017-11-29 12:46 | disposition home or self-care (01) | LOC: LAB 12:45 | PROVIDERS: ATTEND Internal Medicine | DX: N39.0 Urinary tract infection, site not specified (principal) | CPT/HCPCS: 81001; 87086; 87186 ==

== ENCOUNTER 2018-01-14 11:16 | Outpatient (CLI) | payer OTHER ==
--- NOTE | 2018-01-16 09:07 | MAMMO ---
EXAM: Bilateral digital screening mammogram (2-D and 3-D) History: Screening Comparison: Bilateral mammogram 01/10/2017 Findings: MLO and CC views of bilateral breasts demonstrate predominately fatty replaced breast pare nchyma. Stable benign bilateral breast calcifications. No dominant masses, no suspicious microcalci fications and no architectural distortions. CAD was reviewed by the radiologist. Tomosynthesis was performed. Impression: Benign stable mammogram. Recommend followup routine screening mammography in 1 year. BIRADS 2
== END 2018-01-14 11:17 | disposition home or self-care (01) ==
LOC: RAD 11:16
PROVIDERS: ATTEND Internal Medicine
DX: Z12.31 Encounter for screening mammogram for malignant neoplasm of breast (principal)
CPT/HCPCS: 77067

== ENCOUNTER 2018-02-14 10:22 | Outpatient (CLI) | payer OTHER | END 2018-02-14 10:23 | disposition home or self-care (01) | LOC: LAB 10:22 | PROVIDERS: ATTEND Internal Medicine | DX: R30.0 Dysuria (principal); R35.0 Frequency of micturition; Z87.440 Personal history of urinary (tract) infections | CPT/HCPCS: 81001; 87086; 87186 ==

== ENCOUNTER 2018-03-26 15:31 | Outpatient (CLI) ==
[2018-03-26 16:21] VITALS: BP 101/63; TEMP 98
== END 2018-03-26 15:32 | disposition home or self-care (01) ==
LOC: OPMED 15:31
PROVIDERS: ATTEND Internal Medicine Infectious Disease
DX: B96.29 Other Escherichia coli [E. coli] as the cause of diseases classified elsewhere (principal); N39.0 Urinary tract infection, site not specified; Z68.35 Body mass index [BMI] 35.0-35.9, adult
CPT/HCPCS: 81001; 87086

== ENCOUNTER 2018-04-02 12:49 | Outpatient (CLI) | payer OTHER ==
[2018-04-02] MEDS ORDERED: SODIUM CHLORIDE IV STA (13:26)
[2018-04-02] MEDS ORDERED: GENTAMICIN SULFATE IV STA (13:26)
[2018-04-02 13:32] VITALS: BP 99/63; TEMP 98.6
== END 2018-04-02 15:25 | disposition home or self-care (01) ==
LOC: OPMED 12:49
PROVIDERS: ATTEND Internal Medicine
DX: N39.0 Urinary tract infection, site not specified (principal)
CPT/HCPCS: 96365

== ENCOUNTER 2018-06-06 11:11 | Outpatient (CLI) | END 2018-06-06 11:12 | disposition home or self-care (01) | LOC: LAB 11:11 | PROVIDERS: ATTEND Family Medicine | DX: R30.0 Dysuria (principal) | CPT/HCPCS: 81001; 87086; 87186 ==

== ENCOUNTER 2018-07-18 13:55 | Outpatient (CLI) | payer OTHER | END 2018-07-18 13:56 | disposition home or self-care (01) | LOC: RHC-LAB 13:55 → FCC-LAB 13:56 | PROVIDERS: ATTEND Family Medicine | DX: Z51.81 Encounter for therapeutic drug level monitoring (principal) | CPT/HCPCS: 80306 ==

== ENCOUNTER 2018-08-13 16:00 | Emergency (ER) ==
[2018-08-13 16:09] VITALS: BP 105/60; TEMP 97; BMI 34.9
--- NOTE | 2018-08-13 16:38 | ED.PDOC ---
General ED Provider: Dr. ÓSCAR JARVIS Chief Complaint: Foot Pain/Injury Stated Complaint: Rt Foot spasm and cramping. Went to [employer] for lunch today this morning and as she was exiting the van, stepping down felt "spasm" to rt foot. No twisting or injury noted and is not aware of injury. PMHx Hx CVA -Rt hemiparesis;. Is mobile and usually wears brace to rt foot/leg. States she feels as spasm of her Rt foot. Time Seen by Physician: 16:20 Mode of Arrival: Ambulance Information Source: Patient, EMT Exam Limitations: No limitations Primary Care Provider: JAIME SHETH Nursing and Triage Documentation Reviewed and Agree: Yes Does patient meet sepsis criteria?: No System Inflammatory Response Syndrome: Not Applicable Sepsis Protocol: For patient's 13 years and over: Temp is 96.8 and below OR 101 and greater Pulse >90 BPM Resp >20/minute Acutely Altered Mental Status Are patient's symptoms suggestive of a new infection, such as: -Pneumonia -Skin, Soft Tissue -Endocarditis -UTI -Bone, Joint Infection -Implantable Device -Acute Abdominal Infection -Wound Infection -Meningitis -Blood Stream Catheter Infection -Unknown Musculoskeletal Complaint Exam - Ankle/Foot Complaint/Exam Location of Injury: Reports: Foot Mechanism of Injury: Reports: No known trauma Onset/Duration: 3 hrs Symptoms Are: Reports: Still present Onset of Pain: Reports: Immediate Initial Severity: Mild Current Severity: Mild Location: Reports: Discrete Character: Reports: Aching, Spasmodic Alleviating: Reports: Rest Aggravating: Reports: Movement, Weight bearing Able to Bear Weight: Yes Associated Signs and Symptoms: Reports: Swelling. Denies: Redness, Bruising, Fever, Weakness, Numbness, Tingling Related History: Denies: Similar episode, Occupational injury Gout Risk Factors: Reports: None Related Surgical History: Reports: None Lower Extremity Findings: Present: Swelling (bilat ankles and feet sl edematous- chronic). Absent: Ecchymosis, Ligamentous instability, Erythema, Warmth, Other joint pain, Foreign body, Tenderness, Limited range of motion Differential Diagnosis: Strain, Tendonitis Review of Systems - Review Of Systems Constitutional: Reports: Weakness Eyes: Reports: No symptoms Ears, Nose, Mouth, Throat: Reports: No symptoms Respiratory: Reports: No symptoms Cardiac: Reports: No symptoms GI: Reports: No symptoms : Reports: No symptoms Musculoskeletal: Reports: Muscle stiffness Skin: Reports: No symptoms Neurological: Reports: No symptoms Endocrine: Reports: No symptoms Hematologic/Lymphatic: Reports: No symptoms All Other Systems: Reviewed and Negative Past Medical History - Past Medical History Previously Healthy: No Endocrine: Reports: DM 2 Cardiovascular: Reports: Hypertension, CHF Respiratory: Reports: Pneumonia Hematological: Reports: None Gastrointestinal: Reports: None Genitourinary: Reports: None Neuro/Psych: Reports: CVA Musculoskeletal: Reports: Other Cancer: Reports: None Last Menstrual Period: menopause Other Pertinent Past Medical History: Drop Foot, Broken Back - Surgical History General Surgical History: Reports: Appendectomy, Cholecystectomy, Tonsillectomy , Unknown (Gallbladder, Tonsilectomy, Appendectomy Drop Foot, Broken Back) - Family History Family History: Reports: Unknown - Social History Smoking Status: Never smoker Hx Substance Use: No Alcohol Screening: None Physical Exam - Physical Exam Appearance: Ill-appearing, Obese Ill-appearing: None Pain Distress: Mild Eyes: ELVIS, EOMI, Conjunctiva clear ENT: Ears normal, Nose normal, Oropharynx normal Neck: Supple Respiratory: Airway patent Cardiovascular: RRR, Pulses normal, No rub, No murmur GI/: Soft, Nontender, No masses, Bowel sounds normal, No Organomegaly Musculoskeletal: Normal strength, ROM intact, No edema, No calf tenderness, Edema (Rt foot) Skin: Warm, Dry, Normal color Neurological: Sensation intact, Motor intact, Cranial nerves intact, Alert, Oriented Interpretation - Radiology Interpretation Exam Interpreted: Other (Rt Foot xray-small calcaneal spur/OA 1st MTP ) Re-Evaluation - Re-Evaluation Time of Re-Evaluation: 18:30 (Placed in wheelchair for discharge) Status: Improved Vital Signs Stable: Yes Appearance: NAD Lungs: Clear Skin: Warm and Dry Neuro: Alert and Oriented X3 CV: RRR Critical Care Note - Critical Care Note Total Time (mins): 60 Course - Course Hematology/Chemistry: 08/13/18 16:54 08/13/18 16:54 Orders, Labs, Meds: Lab Review 08/13/18 08/13/18 16:54 16:54 WBC 9.97 RBC 4.13 L Hgb 11.9 L Hct 37.1 MCV 89.8 MCH 28.8 MCHC 32.1 RDW Coeff of Naty 13.3 Plt Count 288 Immature Gran % (Auto) 0.3 Neut % (Auto) 70.7 Lymph % (Auto) 19.8 [place] % (Auto) 6.8 Eos % (Auto) 2.2 Baso % (Auto) 0.2 Immature Gran # (Auto) 0.0 Neut # (Auto) 7.1 H Lymph # (Auto) 2.0 [place] # (Auto) 0.7 Eos # (Auto) 0.2 Baso # (Auto) 0.0 Sodium 133.3 L Potassium 4.44 Chloride 95.9 L Carbon Dioxide 26.9 Anion Gap 14.94 BUN 24.6 H Creatinine 1.38 H Estimated GFR (MDRD) 38.00 BUN/Creatinine Ratio 17.82 Glucose 101.5 Calcium 9.32 Magnesium 2.06 Total Bilirubin 0.51 AST 26.1 ALT 18.2 Alkaline Phosphatase 45.3 L Total Protein 6.91 Albumin 4.56 Globulin 2.35 Albumin/Globulin Ratio 1.94 Orders Category Date Time Status CBC W/ AUTO DIFF Stat LAB 08/13/18 16:54 Completed CMP [COMPREHENSIVE METABOLIC PANEL] Stat LAB 08/13/18 16:54 Completed MAGNESIUM Stat LAB 08/13/18 16:54 Completed FOOT, RIGHT 3 VIEWS Stat RADS 08/13/18 16:37 Completed Vital Signs: Temp Pulse Resp BP Pulse Ox 08/13/18 16:01 97 F L 69 20 105/60 97 Departure - Departure Time of Disposition: 18:15 Disposition: HOME SELF-CARE Discharge Problem: Right foot strain, Calcaneal spur of right foot, History of cerebrovascular accident (CVA) greater than eight weeks in the past Instructions: Plantar Fasciitis (ED), Heel Spur (ED), Ankle Strain (ED) Condition: Good Pt referred to PMD for follow-up: Yes (1 week) IPMP verified?: No Additional Instructions: Keep rt leg elevated Apply Ice Pack to area of discomfort Take Tylenol 2 tabs for pain control every 6 hrs Follow up pcp in next week Allergies/Adverse Reactions: Allergies atorvastatin calcium [From Lipitor] Adverse Reaction (Verified 08/13/18 16:11) bacitracin [From Neosporin ([id number])] Adverse Reaction (Verified 08/13/18 16:11) bacitracin zinc [From Neosporin ([id number]-dho-rptry)] Adverse Reaction (Verified 16:11) cephalexin [From Keflex] Adverse Reaction (Verified 08/13/18 16:11) cephalexin monohydrate [From Keflex] Adverse Reaction (Verified 08/13/18 16:11) clarithromycin [From Biaxin] Adverse Reaction (Verified 08/13/18 16:11) Iodinated Contrast- Oral and IV Dye Adverse Reaction (Verified 08/13/18 16:11) neomycin sulfate [From Neosporin ([id number]-aml-nivog)] Adverse Reaction (Verified 16:11) polymyxin B [From Neosporin (bbr-[id number]-ulxce)] Adverse Reaction (Verified 16:11) Sulfa (Sulfonamide Antibiotics) Adverse Reaction (Verified 08/13/18 16:11) Home Medications: Ambulatory Orders Furosemide [Lasix Tab] 20 mg PO QDAC 12/12/12 Oxybutynin Chloride [Ditropan Xl] 15 mg PO DAILY 09/04/13 Clopidogrel Bisulfate [Plavix] 75 mg PO DAILY 02/16/14 Sertraline HCl [Zoloft] 25 mg PO BEDTIME 08/20/14 Spironolactone 25 mg PO BID 04/08/15 Diclofenac Epolamine [Flector] 1 each TD BID 11/16/16 Magnesium Oxide [Magnesium] 250 mg PO BEDTIME 11/16/16 Metformin HCl 500 mg PO DAILY 11/16/16 Omeprazole [Prilosec] 20 mg PO QDAC 03/23/17 Cranberry Fruit Extract/Vit C [Azo Cranberry Softgel] 1 each PO BID 04/24/18 Fluticasone Propionate [Flonase] 16 gm NS DAILY 04/24/18 Montelukast Sodium 10 mg PO DAILY 04/24/18 Pantoprazole Sodium 40 mg PO DAILY 04/24/18 Ranitidine HCl 150 mg PO BID 04/24/18 Amoxicillin 500 mg PO BID 08/13/18 Disposition Discussed With: Patient, Family
--- NOTE | 2018-08-13 17:29 | DI ---
Exam: Right foot three-view. HISTORY: Strained foot. Comparison: 02/16/2014. Findings: Four images of the right foot are submitted. These demonstrate no acute fracture or dislo cation. There is no osseous erosion or radiodense foreign body. Mild joint space narrowing and oste ophytosis is seen at the first metatarsophalangeal joint. There is a small plantar calcaneal spur, s imilar to prior. No focal soft tissue swelling is seen. Impressions: No acute fracture or dislocation of the right foot. Mild degenerative disease at the first metatarsophalangeal joint. Small plantar calcaneal spur.
== END 2018-08-13 18:40 | disposition home or self-care (01) ==
LOC: ED 16:00
DX: M25.571 Pain in right ankle and joints of right foot (principal); L03.115 Cellulitis of right lower limb; R53.1 Weakness; S96.911A Strain of unspecified muscle and tendon at ankle and foot level, right foot, initial encounter
CPT/HCPCS: 36415; 80053; 83735; 85025; 99282

== ENCOUNTER 2018-09-17 11:00 | Outpatient (RCR) ==
--- NOTE | 2018-08-27 16:00 | RS.OPPTEV2 ---
Date of Note: 08/26/18 Visit #: 1 Number of visits approved by Insurance: NA Date of Evaluation: 08/26/18 Payer Source: MEDICARE Date of Onset/Injury/Change in Status: 08/02/18 Treatment Diagnosis: Right foot pain. History of Condition/Mechanism of Injury:: Ms. Matthews reports right foot pain for last few weeks. States she was exiting their van and as she stepped down, she felt a spasm in the right foot. States she has had a history of right foot pain and has been able to manage it with use of Flector patches. Prior Level of Function.....Patient was independent with: Ambulation/Mobility ( transfers) Level of Function: Patient has help from family members for ADL's and selfcare. Prior to the increased right foot pain, she could ambulate in her home and out to the vehicle. Functional Limitations: Standing, Ambulation Current Subjective/complaints:: Patient reports right foot pain, mainly when putting her weight on it. Describes the pain at the ball of the foot, behind the big toe. States she has not been able to ambulate as much due to pain in the right foot with weight bearing. States she is sleeping in her chair because it is easier access to her wheelchair, rather than having to walk back to her bedroom. Also, she is using a BSC, instead of walking to the bathroom, to avoid weight bearing on the right foot. She is using a wheelchair more, rather than walking short distances. States she has run out of Flector patches, and she is trying Salonpas patches, but they do not help at all like the Flector patches do. States she has been unable to get more of the She wears a brace with her right shoe for her drop foot since her CVA years ago. Treatment Side (optional): Right Medical History Medical History: Hypertension, CVA/TIA, Diabetes, Arthritis Medical History Comments:: Includes: pneumonia, DMII, [place], HTN, COPD, GERD, CVA (2003), appendectomy, cholecstectomy,Tonsillectomy Smoking Status: Never smoker Diagnostic Testing/Imaging:: Right foot X-ray on 08/13/18: No acute fracture or dislocation of the right foot. Mild degenerative disease at the first metatarsophalangeal joint. Small plantar calcaneal spur. Hx Home Medications: Furosemide, Ditropan, Plavix, Zoloft, Spironolactone, Metformin, Omeprazole, Flonase, Montelukast Sodium, Pantoprazole, Ranitidine ( Zantac) Patient's Goals: Her goal is to get some relief of right foot pain and be able to tolerate weight on her foot so she can walk more. Pain Assessment - Pain Description Pain Location: ball of the right foot. Pain Description: Sharp, Aching Current Pain Intensity: 3/10 Worst Pain Intensity: 8/10 Functional Outcome Measure LE Functional Scale: 10 (10/80=87.5% impairment) Tinetti: 6 (11/15=78.6% impairment) - G Codes & Severity Modifier G Codes & Modifier: NA Source of G Code score: NA Observation - Observation Inspection: right foot presents with no bruising or redness. Toes 2 through 4 held in flexion pattern. She has a fixed brace on her right shoe and a metatarsal pad in the place in the shoe. Girth Measurement Lower: Right foot: Metheads 23.5 cm, lateral malleoli 29 cm Gait - Gait Pattern Gait Comments: Patient able to ambulate 12 feet with min. assist of one with NBQC in the left hand. Right shoe and brace in place to right LE. She demonstrates short step length and decreased stance on the right LE. She clears the right foot approximately 20% of the time and grimaces during stance phase on the right LE. Sit <> stand to and from wheelchair with CGA of one. General Range of Motion: Right ankle ROM is limited due to CVA years ago. Demonstrates only slight active PF. No notable voluntary movement into DF, inversion or eversion. Demonstrates movement of the great toe into extension, which appears to be an associated reaction, and not voluntary. No voluntary extension of the toes noted. Left ankle demonstrates functional AROM. Muscle Strength: Right ankle DF 1/5, PF 2/5, Inversion 1/5, Eversion 1/5. Right knee 3+/5 quads and HS. Right hip flexion 4-/5, Extension and Abduction 3 +/5. Palpation Comments:: Patient reports slight tenderness at the volar aspect of the first MTP joint on the right foot. Reports slight discomfort with AP glides to the first and second Metatarsals of the right foot. Reports no tenderness in the arch or dosum of midfoot or toes. Sensation - Sensation Comments: Reports she can detect light touch and deep pressure, hot and cold to the right LE. Balance - Sitting Balance Static Sitting Balance: Fair (+) Dynamic Sitting Balance: Fair (+) - Standing Balance Static Standing Balance: Fair (-) Dynamic Standing Balance: Poor - Treatment Modality: Ultrasound Parameters/Method Applied: 1.5 w/cm2 continuous X 8 mins to right MTP joint, medial and volar surface. Patient Position: Sitting Comments: with right leg supported on stool. Interventions - Exercise/Activities/Manual Therapy Exercises/Activities: None given today. Manual Therapy: na HOME EXERCISE PROGRAM: none - Charges Timed Code Treatment Minutes: 8 mins Total Treatment Time: 42 mins Procedures billed for this date of service:: Jeet Olvera, EVALUATION COMPLEXITY LEVEL EVALUATION COMPLEXITY LEVEL: HISTORY: High (HX CVA with R hemiparesis, Diabetes , Right foot OA), EXAM OF BODY SYSTEMS: Medium (foot ROM, MS, sensation, gait, transfers, balance, pain level), CLINICAL PRESENTATION: Medium, CLINICAL DECISION MAKING: Medium Assessment Assessment: Patient presents to therapy with a diagnosis of right foot pain. She has had a recent aggrevation of pain, but has apparently had a history of right foot pain that she had managed with Flector patches. The Flector patches have not been approved by her insurance and she has significant right foot pain without them. She has become less mobile, as she is avoiding weight bearing on the right foot due to the pain. She demonstrates potential to get some relief of right foot pain with use of modalities and manual therapy. Without treatment to address her foot pain, she will continue to avoid weight bearing, making her less mobile and more dependent for ADL's and ambulation. Patient Education: Education of diagnosis (home management), Education of Plan of Care Rehab Potential: Good Short Term Goals Goal #1: Pt to report right foot pain 6/10 at worst. Goal to be met by: 09/10/18 Goal #2: Pt to amb. 30 feet in depart. with CGA and moderate foot pain. Goal to be met by: 09/10/18 Long-Term Goals Goal #1: Pt able to stand as needed with minimal right foot pain. Goal to be met by: 10/01/18 Goal #2: LE functional scale improved to 20/80. Goal to be met by: 10/01/18 Goal #3: Pt able to amb. to bathroom and bedroom in home due to less right foot pain Goal to be met by: 10/01/18 Plan - Treatment to be Provided Procedures: Therapeutic Exercises, Therapeutic Activity, Gait Training, Manual Therapy (Jt mobs), Patient Education Modalities: Electrical Stimulation, Ultrasound/Phonophoresis, Class IV Laser, Cryotherapy, Hot Packs - Treatment Plan Frequency: 2-3 Duration: 4 weeks Dates of Television News Producer Goals: 10/01/18 Expiration date of current Insurance Approval:: NA - Treatment Code (1) Right foot pain Code(s): M79.671 - PAIN IN RIGHT FOOT Comments: M79.671 (2) Foot drop, right Code(s): M21.371 - FOOT DROP, RIGHT FOOT Comments: M21.371 (3) Gait difficulty Code(s): R26.9 - UNSPECIFIED ABNORMALITIES OF GAIT AND MOBILITY Comments: R26.9 (4) Other reduced mobility Code(s): Z74.09 - OTHER REDUCED MOBILITY Comments: Z74.09 Reduced ambulation and mobility (5) CVA, old, hemiparesis Code(s): I69.359 - HEMIPLGA FOLLOWING CEREBRAL INFARCTION AFFECTING UNSP SIDE Comments: I69.359
--- NOTE | 2018-08-28 15:41 | RS.OPPTDN ---
Subjective Date of Note: 08/28/18 Visit #: 2 Number of visits approved by Insurance: na Date of Evaluation: 08/26/18 Payer Source: MEDICARE Treatment Diagnosis: Right foot pain. Current Subjective/complaints:: Patient reports she has seen some improvement in right foot pain with weight-bearing since first treatment of US. Pain Assessment - Pain Description Pain Location: Right foot volar aspect 1st MTP joint Pain Description: Sharp, Aching Current Pain Intensity: mild Worst Pain Intensity: mod+ Other Comments regarding Pain:: Patient reports discomfort with weight-bearing - Treatment Modality: Ultrasound Parameters/Method Applied: [id number]. With US at 1.5w/cm x7mins continuous to the dorsal, volar, and lateral surfaces of the 1st MTP joint and along plantar fascia. Then 5mins PULSED setting with focus on volar side of joint. Patient Position: Supine - Heat/Cryotherapy Treatment: Hot Pack ([id number] to the right foot at the 1st MTP joint. Patient supine. ) Interventions - Exercise/Activities/Manual Therapy Exercises/Activities: na Manual Therapy: Soft and deep tissue massage of the plantar fascia. Passive stretching of the great toe flexion and extension. Passive stretching of plantar fascia and heel cords. Total minutes of Manual Therapy: 19mins HOME EXERCISE PROGRAM: none - Charges Timed Code Treatment Minutes: 31mins Total Treatment Time: 51mins Procedures billed for this date of service:: HP, US, MT Assessment: Patient reporting a good response to treatment with reduction in pain with weight-bearing on right foot. Patient Education: Body/Joint mechanics, Home Safety Short Term Goals Goal #1: Pt to report right foot pain 6/10 at worst. Goal to be met by: 09/10/18 Progress towards Goal:: Progressing Goal #2: Pt to amb. 30 feet in depart. with CGA and moderate foot pain. Goal to be met by: 09/10/18 Progress towards Goal:: Progressing Comments:: Pt takes several steps with transfer to mat table with min to mod pain. Hat Measurer Goals Goal #1: Pt able to stand as needed with minimal right foot pain. Goal to be met by: 10/01/18 Goal #2: LE functional scale improved to 20/80. Goal to be met by: 10/01/18 Goal #3: Pt able to amb. to bathroom and bedroom in home due to less right foot pain Goal to be met by: 10/01/18 Plan Dates of Intermediate Goals: 10/01/18 Expiration date of current Insurance Approval:: 10/01/18 PLAN: Continue modalities and manual therapy to reduce pain and increase functional ambulation and activity level.
--- NOTE | 2018-08-30 16:50 | RS.OPPTDN ---
Subjective Date of Note: 08/30/18 Visit #: 3 Number of visits approved by Insurance: NA Date of Evaluation: 08/26/18 Payer Source: MEDICARE Treatment Diagnosis: Right foot pain. Current Subjective/complaints:: Oxana reports trying to walk more. States she bought more Salonpas patches. States they do not help as much as the Flector patch. States the ultrasound treatments have already helped decrease her foot pain. She states that she wants be able to walk back to her bedroom. Pain Assessment - Pain Description Pain Location: right foot 1st MTP joint. Worst Pain Intensity: moderate with weight bearing - Treatment Modality: Ultrasound Parameters/Method Applied: 12 mins total: 1.5 w/cm2 continuous X 5 mins. Stopped early due to patient reporting pain from treatment. Changed to pulsed at 20% at 1.2 w/cm2 X 7 mins. Treatment to dorsal, lateral, and volar aspect of right 1st MTP joint. Patient Position: Supine - Heat/Cryotherapy Treatment: Hot Pack Comments:: to right foot, mild heat X 10 mins prior to US. Interventions - Exercise/Activities/Manual Therapy Exercises/Activities: na Manual Therapy: Soft and deep tissue massage of the plantar fascia. Passive stretching of the great toe flexion and extension. Passive stretching of plantar fascia and heel cords. Total minutes of Manual Therapy: X 14 mins HOME EXERCISE PROGRAM: none - Objective Findings Observations,measurements,etc.: Ambulated in department with her quad cane, ~ 15 feet to the treatment table. Reporting "it's ok" when asked about foot pain. No facial grimacing noted during ambulation. - Charges Timed Code Treatment Minutes: 26 mins Total Treatment Time: 36 mins Procedures billed for this date of service:: , US, manual therapy Assessment: Ms. Matthews reports already feeling less pain in the right foot when weight bearing. Ambulated 15 feet in department today States it has made her feel like she can try to walk more. Demontrates benefit from continued treatment to reduce pain so that she can be more independent in her home. Patient Education: Education of diagnosis, Education of Plan of Care Short Term Goals Goal #1: Pt to report right foot pain 6/10 at worst. Goal to be met by: 09/10/18 Progress towards Goal:: Progressing Goal #2: Pt to amb. 30 feet in depart. with CGA and moderate foot pain. Goal to be met by: 09/10/18 Progress towards Goal:: Progressing Comments:: Pt able 15 feet with CGA to treatment table,w/o facial grimacing. Stepdown Nurse Goals Goal #1: Pt able to stand as needed with minimal right foot pain. Goal to be met by: 10/01/18 Goal #2: LE functional scale improved to 20/80. Goal to be met by: 10/01/18 Goal #3: Pt able to amb. to bathroom and bedroom in home due to less right foot pain Goal to be met by: 10/01/18 Goal #4: . Plan Dates of Long-Term Goals: 10/01/18 Expiration date of current Insurance Approval:: NA PLAN: continue modalities and manual therapy to decrease right foot pain and improve her tolerance with ambulation.
--- NOTE | 2018-09-03 16:33 | RS.OPPTDN ---
Subjective Date of Note: 09/03/18 Visit #: 4 Number of visits approved by Insurance: na Date of Evaluation: 08/26/18 Payer Source: MEDICARE Treatment Diagnosis: Right foot pain. Current Subjective/complaints:: Patient reports she is doing much better with weight-bearing. States other people at [facility] have said she is walking better. Reports she waas able to sleep in her bed last night and can get up to get to the bathroom. Pain Assessment - Pain Description Pain Location: right foot 1st MTP joint Pain Description: Dull, Aching Current Pain Intensity: mild to mod - Treatment Modality: Ultrasound Parameters/Method Applied: [id number] at 1.5w/cm2 to right foot 1st MTP joint. Patient Position: Supine - Heat/Cryotherapy Treatment: Hot Pack ([id number] to the right foot prior to US and MT. Pt in supine. ) Interventions - Exercise/Activities/Manual Therapy Exercises/Activities: Patient given copy of assisted stretches by PT for caregivers to help with. Manual Therapy: Soft and deep tissue massage of the plantar fascia. Passive stretching of the great toe flexion and extension. Passive stretching of plantar fascia and heel cords. Total minutes of Manual Therapy: 14mins HOME EXERCISE PROGRAM: none - Charges Timed Code Treatment Minutes: 24mins Total Treatment Time: 42mins Procedures billed for this date of service:: HP, US, MT Assessment: Patient reporting consistent progress with reduction in pain, increased weight-bearing, and increase in functional activities in her home. Patient Education: Body/Joint mechanics, Home Exercise Program Short Term Goals Goal #1: Pt to report right foot pain 6/10 at worst. Goal to be met by: 09/10/18 Progress towards Goal:: Met Goal #2: Pt to amb. 30 feet in depart. with CGA and moderate foot pain. Goal to be met by: 09/10/18 Progress towards Goal:: Partially Met Goal #3: Left quad strength improved to 4+/5. Goal to be met by: 02/19/17 Progress towards Goal:: Met Progress towards Goal:: Met Retirement Goals Goal #1: Pt able to stand as needed with minimal right foot pain. Goal to be met by: 10/01/18 Progress towards goal: Progressing Goal #2: LE functional scale improved to 20/80. Goal to be met by: 10/01/18 Goal #3: Pt able to amb. to bathroom and bedroom in home due to less right foot pain Goal to be met by: 10/01/18 Goal #4: . Plan Dates of Retirement Goals: 10/01/18 Expiration date of current Insurance Approval:: 10/01/18 PLAN: Continue modalities and manual therpay to reduce pain and increase functional ambulation and activity level.
--- NOTE | 2018-09-05 17:07 | RS.OPPTDN ---
Subjective Date of Note: 09/05/18 Visit #: 5 Number of visits approved by Insurance: NA Date of Evaluation: 08/26/18 Payer Source: MEDICARE Treatment Diagnosis: Right foot pain. Current Subjective/complaints:: Oxana reports she is walking better on the right foot because of less diggs. She is going up to visit family tomorrow for Easter Weekend. Pain Assessment - Pain Description Pain Location: right forefoot/1st MTP joint Current Pain Intensity: mild with short distance ambulation - Treatment Modality: Ultrasound Parameters/Method Applied: 1.2 w/cm2 X 12 mins to volar and dorsal aspect of MTP joint of great toe. Patient Position: Supine - Heat/Cryotherapy Treatment: Hot Pack (X) Comments:: x 10 mins prior to US and MT Interventions - Exercise/Activities/Manual Therapy Exercises/Activities: None today Manual Therapy: Soft and deep tissue massage of the plantar fascia. Passive stretching of the great toe flexion and extension. Passive stretching of plantar fascia and heel cords. Grades I-II joint mobs of AP glides to the 1st and 2nd metatarsals. Grade I-II joint distraction of the great toe MTP joint. Total minutes of Manual Therapy: X 13 mins HOME EXERCISE PROGRAM: none - Charges Timed Code Treatment Minutes: 25 mins Total Treatment Time: 35 mins Procedures billed for this date of service:: HP, US, MT Assessment: Oxana continues to report walking better due to pain reduced in the right foot. States she is more mobile and able to walk better. Short Term Goals Goal #1: Pt to report right foot pain 6/10 at worst. Goal to be met by: 09/10/18 Progress towards Goal:: Met Goal #2: Pt to amb. 30 feet in depart. with CGA and moderate foot pain. Goal to be met by: 09/10/18 Progress towards Goal:: Partially Met Goal #3: . Windows Server Support Technician Goals Goal #1: Pt able to stand as needed with minimal right foot pain. Goal to be met by: 10/01/18 Progress towards goal: Progressing Goal #2: LE functional scale improved to 20/80. Goal to be met by: 10/01/18 Goal #3: Pt able to amb. to bathroom and bedroom in home due to less right foot pain Goal to be met by: 10/01/18 Progress towards goal: Progressing Goal #4: . Plan Dates of Windows Server Support Technician Goals: 10/01/18 Expiration date of current Insurance Approval:: NA PLAN: continued treatment of modalities and manual therapy to reduce right foot pain and allow Xoana to tolerate more ambulation.
--- NOTE | 2018-09-10 14:38 | RS.OPPTDN ---
Subjective Date of Note: 09/10/18 Visit #: 6 Number of visits approved by Insurance: na Date of Evaluation: 08/26/18 Payer Source: MEDICARE Treatment Diagnosis: Right foot pain. Current Subjective/complaints:: Patient reports continued improvement with pain and with ability to weight-bear on the right foot with ambulation in her home. Pain Assessment - Pain Description Pain Location: right forefoot/1st MTP joint Pain Description: Aching Current Pain Intensity: mild with weight-bearing - Treatment Modality: Ultrasound Parameters/Method Applied: [id number] at 1.5w/cm2 to the right forefoot, 1st MTP, and along the plantar fascia. Patient Position: Supine - Heat/Cryotherapy Treatment: Hot Pack (15mins to the right foot prior to US. Patient in supine. ) Interventions - Exercise/Activities/Manual Therapy Exercises/Activities: None today Manual Therapy: Soft and deep tissue massage of the plantar fascia. Passive stretching of the great toe flexion and extension. Passive stretching of plantar fascia and heel cords. Grades II joint mobs of AP glides to the 1st metatarsal. Grade I-II joint distraction of the great toe MTP joint. Total minutes of Manual Therapy: 17mins HOME EXERCISE PROGRAM: none - Objective Findings Observations,measurements,etc.: Assisted with transfer in bathroom and patient able to stand to pull up pants and wash hands without increased pain. - Charges Timed Code Treatment Minutes: 29mins Total Treatment Time: 44mins Procedures billed for this date of service:: HP, US, MT Assessment: Patient reporting consistent improvement in right foot pain which has improved her functional ambulation around her home. Short Term Goals Goal #1: Pt to report right foot pain 6/10 at worst. Goal to be met by: 09/10/18 Progress towards Goal:: Met Goal #2: Pt to amb. 30 feet in depart. with CGA and moderate foot pain. Goal to be met by: 09/10/18 Progress towards Goal:: Partially Met Goal #3: . Progress towards Goal:: Met Paver Installer Goals Goal #1: Pt able to stand as needed with minimal right foot pain. Goal to be met by: 10/01/18 Progress towards goal: Met Goal #2: LE functional scale improved to 20/80. Goal to be met by: 10/01/18 Goal #3: Pt able to amb. to bathroom and bedroom in home due to less right foot pain Goal to be met by: 10/01/18 Progress towards goal: Progressing Goal #4: . Plan Dates of Paver Installer Goals: 10/01/18 Expiration date of current Insurance Approval:: 10/01/18 PLAN: Continue modalities and manual therapy to reduce pain and increase functional ambulation and activity level.
--- NOTE | 2018-09-12 14:55 | RS.OPPTDN ---
Subjective Date of Note: 09/12/18 Visit #: 7 Number of visits approved by Insurance: na Date of Evaluation: 08/26/18 Payer Source: MEDICARE Treatment Diagnosis: Right foot pain. Current Subjective/complaints:: Patient reports she is doing all her regular walking at home again. States she has mild pain in the right foot but is able to do all the walking she needs to do. Pain Assessment - Pain Description Pain Location: left foot 1st MTP joint Current Pain Intensity: mild with weight-bearing - Treatment Modality: Ultrasound Parameters/Method Applied: [id number] at 1.5w/cm2 to the left foot 1st MTP joint prior to MT. Patient Position: Supine - Heat/Cryotherapy Treatment: Hot Pack ([id number] to the left fore-foot prior to US. ) Interventions - Exercise/Activities/Manual Therapy Exercises/Activities: None today Manual Therapy: Soft and deep tissue massage of the plantar fascia. Passive stretching of the great toe flexion and extension. Passive stretching of plantar fascia and heel cords. Grades II joint mobs of AP glides to the 1st metatarsal. Grade I-II joint distraction of the great toe MTP joint. Total minutes of Manual Therapy: 17mins HOME EXERCISE PROGRAM: none - Charges Timed Code Treatment Minutes: 27mins Total Treatment Time: 42mins Procedures billed for this date of service:: HP, US, MT Assessment: Patient progressing well with pain and with increased ambulation in her home. Short Term Goals Goal #1: Pt to report right foot pain 6/10 at worst. Goal to be met by: 09/10/18 Progress towards Goal:: Met Goal #2: Pt to amb. 30 feet in depart. with CGA and moderate foot pain. Goal to be met by: 09/10/18 Progress towards Goal:: Partially Met Goal #3: . Progress towards Goal:: Met Fdc Goals Goal #1: Pt able to stand as needed with minimal right foot pain. Goal to be met by: 10/01/18 Progress towards goal: Met Goal #2: LE functional scale improved to 20/80. Goal to be met by: 10/01/18 Goal #3: Pt able to amb. to bathroom and bedroom in home due to less right foot pain Goal to be met by: 10/01/18 Progress towards goal: Progressing Goal #4: . Plan Dates of Fdc Goals: 10/01/18 Expiration date of current Insurance Approval:: 10/01/18 PLAN: Conitnue modalities and manual therapy to reduce pain in increase functional activity level.
--- NOTE | 2018-09-17 13:33 | RS.OPPTDN ---
Subjective Date of Note: 09/17/18 Visit #: 8 Number of visits approved by Insurance: na Date of Evaluation: 08/26/18 Payer Source: MEDICARE Treatment Diagnosis: Right foot pain. Current Subjective/complaints:: Patient reports continued improvement in pain in the right foot with transfers and short distance walking. Pain Assessment - Pain Description Pain Location: right forefoot at 1st MTP joint Current Pain Intensity: 0 at rest, mild to mod with weight-bearing Other Comments regarding Pain:: Reports pain increases with weight-bearing and conitnues to limit functional mobility around her home. - Treatment Modality: Ultrasound Parameters/Method Applied: [id number] at 1.5w/cm2 to the right foot 1st MTP joint and along the plantar fascia. Patient Position: Supine - Heat/Cryotherapy Treatment: Hot Pack ([id number] to the right forefoot prior to US and MT. Patinet in supine.) Interventions - Exercise/Activities/Manual Therapy Exercises/Activities: NA Manual Therapy: Soft and deep tissue massage of the plantar fascia. Passive stretching of the great toe flexion and extension. Passive stretching of plantar fascia and heel cords. Grades II joint mobs of AP glides to the 1st metatarsal. Total minutes of Manual Therapy: 14mins HOME EXERCISE PROGRAM: none - Charges Timed Code Treatment Minutes: 26mins Total Treatment Time: 44mins Procedures billed for this date of service:: HP, US, MT Assessment: Patient reports continued improvement in foot pain that is limiting her functional mobility in her home. She is benefitting from skiiled manual therapy to reduce foot pain. Short Term Goals Goal #1: Pt to report right foot pain 6/10 at worst. Goal to be met by: 09/10/18 Progress towards Goal:: Met Goal #2: Pt to amb. 30 feet in depart. with CGA and moderate foot pain. Goal to be met by: 09/10/18 Progress towards Goal:: Partially Met Goal #3: . Progress towards Goal:: Met Half-Way Goals Goal #1: Pt able to stand as needed with minimal right foot pain. Goal to be met by: 10/01/18 Progress towards goal: Met Goal #2: LE functional scale improved to 20/80. Goal to be met by: 10/01/18 Goal #3: Pt able to amb. to bathroom and bedroom in home due to less right foot pain Goal to be met by: 10/01/18 Progress towards goal: Partially Met (Can amb to bathroom in home at times, but limited due to pain.) Goal #4: . Plan Dates of Condenser Tester Goals: 10/01/18 Expiration date of current Insurance Approval:: 10/01/18 PLAN: Continue treatment, including skilled manual therapy, to reduce pain and increase functional ambulation.
== END 2018-09-17 23:59 ==
PROVIDERS: ATTEND Podiatrist
DX: M79.661 Pain in right lower leg (principal); M79.671 Pain in right foot; M21.371 Foot drop, right foot; R26.2 Difficulty in walking, not elsewhere classified; R26.81 Unsteadiness on feet; G83.10 Monoplegia of lower limb affecting unspecified side

== ENCOUNTER 2018-10-03 13:00 | Outpatient (RCR) ==
--- NOTE | 2018-09-19 15:06 | RS.OPPTDN ---
Subjective Date of Note: 09/19/18 Visit #: 9 Number of visits approved by Insurance: NA Date of Evaluation: 08/26/18 Payer Source: MEDICARE Treatment Diagnosis: Right foot pain. Current Subjective/complaints:: Oxana states she has been using the prescription Diclofenac ointment/gel on her foot and it seems to be doing well. States she is using it instead of the Salon Patches. She is walking back to her bed and continues to be walking better with less foot pain since having therapy and using the foot ointment. Pain Assessment - Pain Description Pain Location: Great toe MTP joint of right foot Current Pain Intensity: mild, more tender today - Treatment Modality: Ultrasound Parameters/Method Applied: 12 mins total @ 1.2 w/cm2 continuous to dorsum and volar aspect of the MTP joint of the great toe. Patient Position: Supine - Heat/Cryotherapy Treatment: Hot Pack Comments:: x 15 mins to right foot prior to US and manual therapy Interventions - Exercise/Activities/Manual Therapy Exercises/Activities: NA Manual Therapy: Directional massage to right forefoot. Passive stretching of the great toe flexion and extension. Passive stretching of plantar fascia and heel cords. Grades II joint mobs of AP glides to the 1st metatarsal jt. Total minutes of Manual Therapy: X 14 mins HOME EXERCISE PROGRAM: none - Charges Timed Code Treatment Minutes: 26 mins Total Treatment Time: 41 mins Procedures billed for this date of service:: Hp, US, MT Assessment: Oxana continues to feel that therapy has decreased her foot pain. She is getting around better because she is having less foot pain. Short Term Goals Goal #1: Pt to report right foot pain 6/10 at worst. Goal to be met by: 09/10/18 Progress towards Goal:: Met Goal #2: Pt to amb. 30 feet in depart. with CGA and moderate foot pain. Goal to be met by: 09/10/18 Progress towards Goal:: Partially Met Goal #3: . Progress towards Goal:: Met Senior Living Goals Goal #1: Pt able to stand as needed with minimal right foot pain. Goal to be met by: 10/01/18 Progress towards goal: Met Goal #2: LE functional scale improved to 20/80. Goal to be met by: 10/01/18 Goal #3: Pt able to amb. to bathroom and bedroom in home due to less right foot pain Goal to be met by: 10/01/18 Progress towards goal: Partially Met (Can amb to bathroom in home at times, she is getting back to her bed regularly) Goal #4: . Plan Dates of Senior Living Goals: 10/01/18 Expiration date of current Insurance Approval:: NA PLAN: Continue treatment to reduce right foot pain and enable her to tolerate more ambulation.
--- NOTE | 2018-09-23 15:55 | RS.PTSUM ---
Progress Note/Summary Date of Note: 09/23/18 Date of Evaluation: 08/26/18 Number of Visits: 10 Reporting Period for this Progress Note: 08/26/18 Current Complaints/Gains: Oxana states before she had therapy, she only got up to go to the bathroom and she was just using the BSC. States now she is ambulating almost as much as she was before. She walks to the bathroom and walks back to her bed. States the therapy has really helped. She is also using the Diclofenac gel, which she states helps more than the Salon Pas patches. Objective Measurements/Presentation: Patient able to transfer and ambulate in the department with her quad cane, without grimacing or reports of pain. Received most heat to right foot X 10 mins, followed by Ultrasound continuous X 10 mins to volar and dorsal aspect of MTP joint of great toe. Patient then received joint mobilization of MTP joint of great toe, along the DTM to plantar fascia, with stretching to plantar fascia and heel cord. Directional massage performed to reduce light swelling at base of MTP joints. X 16 mins Total direct treatment time of 26 mins. Charges today of US, and manual therapy. G Codes: NA Source of G Code Score: NA - Short Term Goals Goal #1: Pt to report right foot pain 6/10 at worst. Goal to be met by: 09/10/18 Progress towards Goal:: Met Goal #2: Pt to amb. 30 feet in depart. with CGA and moderate foot pain. Goal to be met by: 09/10/18 Progress towards Goal:: Progressing Goal #3: Amb. 20 feet in department with CGA and min foot pain. Goal to be met by: 02/19/17 Progress towards Goal:: Met Goal #4: Pt and son demonstrate independence with donning left knee brace. Goal to be met by: 02/12/17 Progress towards Goal:: Met - Assisted Goals Goal #1: Pt able to stand as needed with minimal right foot pain. Goal to be met by: 10/01/18 Progress towards goal: Met Goal #2: LE functional scale improved to 20/80. Goal to be met by: 10/01/18 Progress towards goal: Partially Met Goal #3: Pt able to amb. to bathroom and bedroom in home due to less right foot pain Goal to be met by: 10/01/18 Progress towards goal: Met Goal #4: . - Assessment Summary: Patient has made progress towards goals., Patient demonstrates potential to gain increased function with therapy - Plan Plan: Continue Plan of Care Frequency: 1 X week Duration: 2 weeks Dates of Assisted Goals: 10/01/18 Expiration date of current Insurance Approval:: NA
--- NOTE | 2018-09-27 14:25 | RS.OPPTDN ---
Subjective Date of Note: 09/27/18 Visit #: 11 Number of visits approved by Insurance: NA Date of Evaluation: 08/26/18 Payer Source: MEDICARE Treatment Diagnosis: Right foot pain. Current Subjective/complaints:: Oxana reports right foot always feels better following treatment. Continues to report the improvement in foot pain has helped her be more mobile and ambulate as needed. Pain Assessment - Pain Description Pain Location: MTP joint of right great toe Current Pain Intensity: mild - Treatment Modality: Ultrasound Parameters/Method Applied: X 12 mins total to right foot, emphasis on volar and dorsum surface of MTP joint of great toe. Patient Position: Supine - Heat/Cryotherapy Treatment: Hot Pack (X 12 mins to right foot prior to US and MT) Interventions - Exercise/Activities/Manual Therapy Exercises/Activities: NA Manual Therapy: Grades I-II AP glides and distraction to MTP joint of great toe. Also AP glides of 1st and 2nd metatarsals. DTM to plantar fascia and dorsum of foot , with directional massage. Stretching to great toe into extension, plantar fascia, and heel cord. Total minutes of Manual Therapy: X 17 HOME EXERCISE PROGRAM: none - Objective Findings Observations,measurements,etc.: Pt transfers from wheelchair with supervision. Ambulates with quad cane to treatment table with CGA. Demonstrates no facial grimacing with weight bearing on right foot. - Charges Timed Code Treatment Minutes: 29 mins Total Treatment Time: 41 mins Procedures billed for this date of service:: hp, US, manual therapy Assessment: Pt to be seen for one last visit for continued management of pain at right MTP joint of great toe. Discussed her continuing to manage with use of the precription cream/gel on her foot after discharge. Short Term Goals Goal #1: Pt to report right foot pain 6/10 at worst. Goal to be met by: 09/10/18 Progress towards Goal:: Met Goal #2: Pt to amb. 30 feet in depart. with CGA and moderate foot pain. Goal to be met by: 09/10/18 Progress towards Goal:: Progressing Goal #3: Amb. 20 feet in department with CGA and min foot pain. Goal to be met by: 02/19/17 Progress towards Goal:: Met Goal #4: Pt and son demonstrate independence with donning left knee brace. Goal to be met by: 02/12/17 Progress towards Goal:: Met Alf Goals Goal #1: Pt able to stand as needed with minimal right foot pain. Goal to be met by: 10/01/18 Progress towards goal: Met Goal #2: LE functional scale improved to 20/80. Goal to be met by: 10/01/18 Progress towards goal: Partially Met Goal #3: Pt able to amb. to bathroom and bedroom in home due to less right foot pain Goal to be met by: 10/01/18 Progress towards goal: Met Goal #4: . Plan Dates of Strap Maker Goals: 10/01/18 Expiration date of current Insurance Approval:: NA PLAN: Pt to be seen for final treatment next week.
--- NOTE | 2018-10-03 15:38 | RS.OPPTDN ---
Subjective Date of Note: 10/03/18 Visit #: 12 Number of visits approved by Insurance: na Date of Evaluation: 08/26/18 Payer Source: MEDICARE Treatment Diagnosis: Right foot pain. Current Subjective/complaints:: Patient reports treatment has helped her significantly. States she is walking as needed in her home. Pain Assessment - Pain Description Pain Location: right forefoot 1st MTP joint. Current Pain Intensity: mild, no pain at rest - Treatment Modality: Ultrasound Parameters/Method Applied: [id number] to the right forefoot and 1st MTP joint prior to MT. Patient Position: Supine - Heat/Cryotherapy Treatment: Hot Pack ([id number] to the right foot prior to US and MT. Patient in supine. ) Interventions - Exercise/Activities/Manual Therapy Exercises/Activities: NA Manual Therapy: Grades I-II AP glides and distraction to MTP joint of great toe. Also AP glides of 1st and 2nd metatarsals. Plantar fascia stretch and deep tissue massage to plantar surface and dorsum of foot. Stretching to great toe into extension, plantar fascia, and heel cord. Total minutes of Manual Therapy: 14mins HOME EXERCISE PROGRAM: none - Charges Timed Code Treatment Minutes: 28mins Total Treatment Time: 48mins Procedures billed for this date of service:: HP, US, MT Assessment: Patient has progressed well, reported a decrease in pain, and an increase in functional ambulation and mobility. She has met 6 of 7 of her treatrment goals and her personal injury litigation paralegal will help her continue stretching. Short Term Goals Goal #1: Pt to report right foot pain 6/10 at worst. Goal to be met by: 09/10/18 Progress towards Goal:: Met Goal #2: Pt to amb. 30 feet in depart. with CGA and moderate foot pain. Goal to be met by: 09/10/18 Progress towards Goal:: Met Goal #3: Amb. 20 feet in department with CGA and min foot pain. Goal to be met by: 02/19/17 Progress towards Goal:: Met Goal #4: Pt and son demonstrate independence with donning left knee brace. Goal to be met by: 02/12/17 Progress towards Goal:: Met Bicycle Inspector Goals Goal #1: Pt able to stand as needed with minimal right foot pain. Goal to be met by: 10/01/18 Progress towards goal: Met Goal #2: LE functional scale improved to 20/80. Goal to be met by: 10/01/18 Progress towards goal: Partially Met Comments: Goal #3: Pt able to amb. to bathroom and bedroom in home due to less right foot pain Goal to be met by: 10/01/18 Progress towards goal: Met Goal #4: . Plan Dates of Group Home Goals: 10/01/18 Expiration date of current Insurance Approval:: 0 PLAN: Discharge at this time.
--- NOTE | 2018-10-17 15:51 | RS.OPPTDC ---
Date of Discharge: 10/03/18 Date of Evaluation: 08/26/18 Number of Visits: 12 Treatment Diagnosis: Right foot pain. Current Complaints/Gains: Oxana reports her foot is much better. States she is able to walk in the house as needed. States her caregiver will help her continue the stretches to her foot and ankle. She is able to ambulate with little to no foot pain. Functional Outcome Measure LE Functional Scale: 16 (16/80) - G Codes & Severity Modifier G Codes & Modifier: NA Source of G Code score: NA Interventions - Exercise/Activities/Manual Therapy Exercises/Activities: NA Manual Therapy: NA HOME EXERCISE PROGRAM: none - Objective Findings Observations,measurements,etc.: Oxana transfers and ambulates in the department without facial grimacing and denies pain. - Charges Timed Code Treatment Minutes: NA Total Treatment Time: NA Procedures billed for this date of service:: NA Assessment Assessment: Oxana is very pleased with the relief of right foot pain she has gotten with therapy. She is now able to ambulate in her home to her bed and to the bathroom. States her mobility is no longer limited because of pain in the right foot with weight bearing. Her caregiver will continue her stretching at home. Short Term Goals Goal #1: Pt to report right foot pain 6/10 at worst. Goal to be met by: 09/10/18 Progress towards Goal:: Met Goal #2: Pt to amb. 30 feet in depart. with CGA and moderate foot pain. Goal to be met by: 09/10/18 Progress towards Goal:: Met Alf Goals Goal #1: Pt able to stand as needed with minimal right foot pain. Goal to be met by: 10/01/18 Progress towards goal: Met Goal #2: LE functional scale improved to 20/80. Goal to be met by: 10/01/18 Progress towards goal: Partially Met Goal #3: Pt able to amb. to bathroom and bedroom in home due to less right foot pain Goal to be met by: 10/01/18 Progress towards goal: Met Goal #4: . Plan Reason for Discharge:: Maximum Potential Met
== END 2018-10-18 23:59 ==
PROVIDERS: ATTEND Podiatrist
DX: M79.661 Pain in right lower leg (principal); M79.671 Pain in right foot; M21.371 Foot drop, right foot; R26.2 Difficulty in walking, not elsewhere classified; R26.81 Unsteadiness on feet; G83.10 Monoplegia of lower limb affecting unspecified side

== ENCOUNTER 2018-10-18 15:03 | Outpatient (CLI) | payer OTHER | END 2018-10-18 15:04 | disposition home or self-care (01) | LOC: RHC-LAB 15:03 → FCC-LAB 15:04 | PROVIDERS: ATTEND Family Medicine | DX: N39.0 Urinary tract infection, site not specified (principal) | CPT/HCPCS: 87086; 87186 ==

== ENCOUNTER 2018-10-21 15:31 | Outpatient (CLI) | payer OTHER ==
[2018-10-21 16:01] VITALS: BP 100/60; TEMP 98.7
== END 2018-10-21 15:32 | disposition home or self-care (01) ==
LOC: LAB 15:31
PROVIDERS: ATTEND Internal Medicine Infectious Disease
DX: N39.0 Urinary tract infection, site not specified (principal); B96.29 Other Escherichia coli [E. coli] as the cause of diseases classified elsewhere
CPT/HCPCS: 81001; 87086; 87186; 99211

== ENCOUNTER 2018-10-24 11:08 | Outpatient (CLI) | payer OTHER ==
[2018-10-24 16:26] VITALS: BP 110/64; TEMP 98.3
[2018-10-24] MEDS ORDERED: GENTAMICIN SULFATE IV ONE (16:30)
[2018-10-24] MEDS ORDERED: SODIUM CHLORIDE IV ONE (16:30)
== END 2018-10-24 11:09 | disposition home or self-care (01) ==
LOC: LAB 11:08 → OPMED 11:09
PROVIDERS: ATTEND Internal Medicine Infectious Disease
DX: N39.0 Urinary tract infection, site not specified (principal); B96.29 Other Escherichia coli [E. coli] as the cause of diseases classified elsewhere
CPT/HCPCS: 36415; 82565; 96366

== ENCOUNTER 2018-10-25 18:15 | Outpatient (CLI) | payer OTHER ==
[2018-10-25] MEDS ORDERED: GENTAMICIN SULFATE IV ONE ×2 (18:29→18:32)
[2018-10-25] MEDS ORDERED: SODIUM CHLORIDE IV ONE ×2 (18:29→18:32)
[2018-10-25 21:40] VITALS: BP 100/61; TEMP 97.5
== END 2018-10-25 18:16 | disposition home or self-care (01) ==
LOC: OPMED 18:15
PROVIDERS: ATTEND Internal Medicine Infectious Disease
DX: N39.0 Urinary tract infection, site not specified (principal); B96.29 Other Escherichia coli [E. coli] as the cause of diseases classified elsewhere
CPT/HCPCS: 96366

== ENCOUNTER 2018-10-26 19:49 | Outpatient (CLI) ==
[2018-10-26] MEDS ORDERED: GENTAMICIN SULFATE IV STA (20:12)
[2018-10-26] MEDS ORDERED: SODIUM CHLORIDE IV STA (20:12)
[2018-10-26 22:45] VITALS: BP 103/67; TEMP 98.2
== END 2018-10-26 19:50 | disposition home or self-care (01) ==
LOC: OPMED 19:49
PROVIDERS: ATTEND Internal Medicine Infectious Disease
DX: N39.0 Urinary tract infection, site not specified (principal); B96.29 Other Escherichia coli [E. coli] as the cause of diseases classified elsewhere
CPT/HCPCS: 96365

== ENCOUNTER 2019-01-16 12:59 | Outpatient (CLI) | payer OTHER ==
[2018-12-02 16:58] VITALS: BMI 34.0
--- NOTE | 2019-01-17 11:36 | MAMMO ---
EXAM: Bilateral digital screening mammogram (2-D and 3-D) History: Screening Comparison: Bilateral mammogram 01/14/2018 Findings: MLO and CC views of bilateral breasts demonstrate predominately fatty replaced breast pare nchyma. CAD was reviewed by the radiologist. Tomosynthesis was performed. Stable benign bilateral breast calcifications. There are no dominant masses, no suspicious microcalcifications and no ember ectural distortions Impression: Benign stable mammogram. Recommend followup routine screening mammography in 1 year. BI-RADS 2, benign
== END 2019-01-16 13:00 | disposition home or self-care (01) ==
LOC: RAD 12:59
PROVIDERS: ATTEND Family Medicine
DX: Z12.31 Encounter for screening mammogram for malignant neoplasm of breast (principal)

== ENCOUNTER 2019-01-17 15:58 | Outpatient (CLI) | payer OTHER ==
[2018-12-02 16:58] VITALS: BMI 34.0
== END 2019-01-17 15:59 | disposition home or self-care (01) ==
LOC: RHC-LAB 15:58 → FCC-LAB 15:59
PROVIDERS: ATTEND Family Medicine
DX: R53.82 Chronic fatigue, unspecified (principal); R30.0 Dysuria; G62.9 Polyneuropathy, unspecified; Z86.73 Personal history of transient ischemic attack (TIA), and cerebral infarction without residual deficits
CPT/HCPCS: 36415; 82607; 83735; 84439; 84443; 87086; 87186

== ENCOUNTER 2019-01-24 15:07 | Outpatient (CLI) | payer OTHER ==
[2018-12-02 16:58] VITALS: BMI 34.0
== END 2019-01-24 15:08 | disposition home or self-care (01) ==
LOC: RHC-LAB 15:07 → FCC-LAB 15:08
PROVIDERS: ATTEND Family Medicine
DX: Z87.440 Personal history of urinary (tract) infections (principal)
CPT/HCPCS: 87086